=== PATIENT | male | born 1985 | race Caucasian/White ===

== ENCOUNTER 2020-06-24 06:31 | Outpatient (REF) | payer OTHER, SELFPAY ==
[2020-06-24 12:11] LABS: Free T4 (Free Thyroxine) 0.89 ng/dL (0.71-1.85); Thyroid Stimulating Hormone 3.75 uIU/mL (0.32-4.0)
== END 2020-06-24 06:32 | disposition home or self-care (01) ==
LOC: HO.HMGCLDS 06:31
PROVIDERS: PCP Internal Medicine; Visit Provider Internal Medicine
DX: E03.9 Hypothyroidism, unspecified (principal)
CPT/HCPCS: 84439; 84443

== ENCOUNTER 2020-08-04 09:36 | Outpatient (REF) | payer OTHER, SELFPAY ==
[2020-08-04 11:51] LABS: Cholesterol 329 mg/dL; HDL Cholesterol 30 mg/dL; Triglycerides 918 mg/dL
[2020-08-04 12:06] LABS: Free T4 (Free Thyroxine) 1.23 ng/dL (0.71-1.85); Thyroid Stimulating Hormone 0.89 uIU/mL (0.32-4.0)
[2020-08-07 18:58] LABS: LDL Cholesterol Direct 71 mg/dL (<100)
== END 2020-08-04 09:37 | disposition home or self-care (01) ==
LOC: HO.HMGCLDS 09:36
PROVIDERS: PCP Internal Medicine; Visit Provider Internal Medicine
DX: E03.9 Hypothyroidism, unspecified (principal)
CPT/HCPCS: 36415; 80061; 83721; 84439; 84443

== ENCOUNTER 2020-11-05 07:25 | Outpatient (REF) | payer OTHER, SELFPAY ==
[2020-11-05 12:12] LABS: Alanine Aminotransferase 27 U/L (0-40); Albumin Level 4.4 g/dL (3.5-5.0); Alkaline Phosphatase 51 U/L (39-117); Anion Gap 12 (12-20); Aspartate Amino Transferase 18 U/L (5-37); Bilirubin Direct 0.2 mg/dL (0.0-0.5); Bilirubin Total 0.7 mg/dL (0.0-1.0); Blood Urea Nitrogen 16 mg/dL (9-16); Calcium 9.8 mg/dL (8.4-10.2); Carbon Dioxide 31 mmol/L (22-29); Chloride 102 mmol/L (96-108); Cholesterol 218 mg/dL; Estimated Glomerular Filt Rate > 60; Free T4 (Free Thyroxine) 1.25 ng/dL (0.71-1.85); Glucose Fasting 91 mg/dL (60-99); HDL Cholesterol 29 mg/dL; LDL Cholesterol Calculated 115 mg/dl; Potassium 4.2 mmol/L (3.3-5.1); Sodium 141 mmol/L (135-145); Thyroid Stimulating Hormone 0.17 uIU/mL (0.32-4.0); Total Protein 7.2 g/dL (6.5-8.0); Triglycerides 374 mg/dL
[2020-11-06 04:31] LABS: LDL Cholesterol Direct 103 mg/dL (<100)
[2020-11-06 06:07] LABS: Thyroid Peroxidase Antibodies <1 IU/mL (<9)
== END 2020-11-05 07:26 | disposition home or self-care (01) ==
LOC: HO.HMGCLDS 07:25
PROVIDERS: PCP Internal Medicine; Visit Provider Internal Medicine
DX: E78.1 Pure hyperglyceridemia (principal); E03.9 Hypothyroidism, unspecified
CPT/HCPCS: 36415; 80053; 80061; 80076; 82248; 83721; 84439; 84443; 86376

== ENCOUNTER 2021-06-03 08:15 | Outpatient (REF) | payer OTHER, SELFPAY ==
[2021-06-03 12:32] LABS: Alanine Aminotransferase 22 U/L (0-40); Aspartate Amino Transferase 17 U/L (5-37); Cholesterol 243 mg/dL; HDL Cholesterol 32 mg/dL; LDL Cholesterol Calculated 142 mg/dl; Triglycerides 346 mg/dL
[2021-06-03 12:57] LABS: Free T4 (Free Thyroxine) 1.28 ng/dL (0.71-1.85); Thyroid Stimulating Hormone 0.95 uIU/mL (0.32-4.0)
== END 2021-06-03 08:16 | disposition home or self-care (01) ==
LOC: HO.HMGCLDS 08:15
PROVIDERS: PCP Internal Medicine; Visit Provider Internal Medicine
DX: Z00.01 Encounter for general adult medical examination with abnormal findings (principal); E03.9 Hypothyroidism, unspecified; E78.1 Pure hyperglyceridemia
CPT/HCPCS: 36415; 80061; 84439; 84443; 84450; 84460

== ENCOUNTER 2022-05-31 06:31 | Outpatient (REF) | payer BC, SELFPAY ==
[2022-05-31 12:17] LABS: Alanine Aminotransferase 45 U/L (0-40); Aspartate Amino Transferase 35 U/L (5-37); Cholesterol 217 mg/dL; HDL Cholesterol 30 mg/dL; LDL Cholesterol Calculated 110 mg/dl; Triglycerides 389 mg/dL
== END 2022-05-31 06:32 | disposition home or self-care (01) ==
LOC: HO.HMGCLDS 06:31
PROVIDERS: PCP Internal Medicine; Visit Provider Internal Medicine
DX: E03.9 Hypothyroidism, unspecified (principal); E78.1 Pure hyperglyceridemia
CPT/HCPCS: 36415; 80061; 84439; 84443; 84450; 84460

== ENCOUNTER → 2022-07-20 13:58 | Outpatient (REF) | payer BC, SELFPAY ==
--- NOTE | 2022-07-20 14:07 | CA_ITS ---
Transthoracic Echocardiogram Patient (Last, First, Middle): John Smith James Gender: Male Date of : 1985 Age: 36 Procedure Date: 07/20/2022 Procedure Type: Transthoracic Echocardiogram Location: OP Height: 177.8 cm Weight: 77.11 kg BSA: 1.95 m2 Heart Rate: bpm BP: 110 / 78 mmHg Surgical Coordinator: TO Referring MD: Tania Pascual MD Symptoms: R00.2 - Palpitations Study Quality: Fair/Contrast ECG Rhythm: Sinus Conclusions: - The left ventricular systolic function is normal. The visually estimated ejection fraction is between 55-60%. - No obvious valvular pathology seen on this study. Findings Procedure Information Contrast agent, definity, is being given per protocol without apparent complications. Left Ventricle Normal left ventricular cavity size. There is normal left ventricular wall thickness. The left ventricular systolic function is normal. The visually estimated ejection fraction is between 55-60%. There is no evidence of regional wall motion abnormalities. Diastolic function is normal for age. Right Ventricle Normal right ventricular cavity size and systolic function. Atria Both atria are normal in size. Aortic Valve There is a normal trileaflet aortic valve. There is no aortic valve stenosis. There is no aortic valve regurgitation. Mitral Valve The mitral valve appears normal. There is trace mitral valve regurgitation. There is no mitral valve stenosis. Pulmonic Valve The pulmonic valve is likely normal. Tricuspid Valve Normal tricuspid valve structure. There is trace tricuspid valve regurgitation. There is no evidence of pulmonary hypertension. Great Vessels The aortic annulus, sinuses of valsalva, and asc aorta are normal in size. Venous The inferior vena cava is normal in size and collapses greater than 50% with inspiration. Pericardium/Pleural There is no evidence of pericardial effusion. Prior Study Comparison No prior study available for comparison. Recommendations, Care & Conclusions No obvious valvular pathology seen on this study. Measurements 2D Linear Measurements IVSd: 0.80 0.6-0.9/0.6-1.0 cm LVIDd: 4.40 3.9-5.3/4.2-5.9 cm LVIDd Index: 2.26 2.4-3.2/2.2-3.1 cm/m2 LVIDs: 3.10 2.0-3.6 cm LVPWd: 0.85 0.7-1.1 cm LA Diam: 2.30 2.7-3.8/3.0-4.0 cm LAIDs Index: 1.18 1.5-2.3 cm/m2 LV Mass: 141.14 67-162/88-224 g LV Mass Index: 72.38 43-95/49-115 g/m2 LVOT Diam: 2.10 3.0+(-)1.3 cm 2D Systolic Function EF 4C: 60.70 >55% EF 2C: 63.90 >55% EF BiP: 61.90 >55% Mitral Valve E'Lateral: 7.94 E'Medial: 6.96 Aortic Valve AoV Pk Leno: 1.29 AoV Mn Leno: 0.92 AoV VTI: 0.24 AoV Pk Grad: 7.00 Aov Mn Grad: 4.00 KIARA Cont.VTI: 2.11 LVOT LVOT Pk Leno: 0.78 LVOT Mn Leno: 0.56 LVOT VTI: 0.15 LVOT Pk Grad: 2.00 LVOT Mn Grad: 1.00 LVOT Diam: 2.10 LVOT Area: 3.46 Diastolic Function E'Medial: 6.96 E' Laterial: 7.94 Right Ventricle TAPSE (mm): 19.00 TVS' Leno: 10.30 Tricuspid Valve TR Pk Leno: 1.91 TR Pk Grad: 15.00 RA Press: 3.00 RVSP: 18.00 Great Vessels Aorta Sinus of Valsalva: 3.05 2.0-3.5 cm Ao Asc: 2.80 2.1-3.4 cm Updated in Other Vendor System with Status of Final Rashard Zhao MD electronically signed on 07/22/2022 1:25:54 PM with status of Final
== END ==
LOC: HO.CARD 13:58
PROVIDERS: Visit Provider Internal Medicine
DX: R07.89 Other chest pain (principal); R00.2 Palpitations; I45.10 Unspecified right bundle-branch block; E03.9 Hypothyroidism, unspecified; E78.1 Pure hyperglyceridemia
CPT/HCPCS: 93242; 93306; Q9957

== ENCOUNTER → 2022-07-29 14:41 | Outpatient (REF) | payer BC, SELFPAY ==
--- NOTE | 2022-07-29 15:00 | HM_ITS ---
* Total monitoring time 5 days, 22 hours. * Underlying rhythm is sinus. Average ventricular rate 73/Min. Range 47 to 166/Min. * Rare PACs and PVCs with minimal burden. * No sustained arrhythmias. * No pauses or AV blocks. * Palpitations correlate with PVCs. MTDD
== END ==
LOC: HO.CARD 14:41
PROVIDERS: Visit Provider Internal Medicine
DX: R07.89 Other chest pain (principal); I45.10 Unspecified right bundle-branch block; R00.2 Palpitations
CPT/HCPCS: 93242

== ENCOUNTER → 2022-09-20 14:13 | Outpatient (BNVA) | payer BC, SELFPAY | PROVIDERS: PCP Internal Medicine; Referring Provider Internal Medicine; Visit Provider Internal Medicine | DX: R07.2 Precordial pain (principal); I49.3 Ventricular premature depolarization; R00.2 Palpitations | CPT/HCPCS: 93005 ==

== ENCOUNTER 2023-03-02 09:07 | Outpatient (REF) | payer BC, SELFPAY ==
[2023-03-02 11:57] LABS: Alanine Aminotransferase 34 U/L (0-40); Aspartate Amino Transferase 20 U/L (5-37); Cholesterol 221 mg/dL; HDL Cholesterol 35 mg/dL; LDL Cholesterol Calculated 149 mg/dl; Triglycerides 188 mg/dL
[2023-03-02 12:15] LABS: Thyroid Stimulating Hormone 0.29 uIU/mL (0.32-4.0)
[2023-03-03 05:59] LABS: Thyroid Peroxidase Antibodies <1 IU/mL (<9)
== END 2023-03-02 09:08 | disposition home or self-care (01) ==
LOC: HO.HMGCLDS 09:07
PROVIDERS: PCP Internal Medicine; Visit Provider Internal Medicine
DX: E03.9 Hypothyroidism, unspecified (principal); F32.A Depression, unspecified; F41.9 Anxiety disorder, unspecified; E78.1 Pure hyperglyceridemia
CPT/HCPCS: 36415; 80061; 84439; 84443; 84450; 84460; 86376

== ENCOUNTER 2023-03-06 16:20 | Outpatient (AMB) | payer BC, SELFPAY ==
--- NOTE | 2023-03-06 16:20 | MHC.PC.OV ---
Intake Visit Reasons: f/u lipids and thyroid I phone Allergies No Known Allergies Allergy (Verified 03/06/23 16:24) Medication List - Last Reconciled 03/06/23 by Tania Pascual MD omega-3 acid ethyl esters (Lovaza) 2 caps PO BID Synthroid (levothyroxine) 150 mcg PO QWEEK NS Synthroid (levothyroxine) ONE TABLET Q.A.M. MONDAY TO MONDAY 175 mcg PO; NS Tobacco use date assessed: 03/06/23 Dental Screening Dental Screen Date: 03/06/23 Did you have a dental visit in the last 12 months?: Yes Did you have a dental problem in the last 6 months where you did not have access to dental care?: No Was dental information given to patient?: No HPI f/u lipids and thyroid I phone HPI Details Tele health visit made with 37-year-old male with mixed dyslipidemia and hypothyroidism, currently on Hortense 3 fatty acid supplements and Synthroid, here today for a follow-up. He had recent fasting labs done which showed triglycerides within normal limits but LDL cholesterol higher than last check at 149 mg/dL patient states that he has not been very strict with his diet these past few months. His latest labs also showed mildly suppressed TSH with normal free T4 and negative thyroid peroxidase antibodies . [facility] Medical History (Updated 03/06/23 @ 16:42 by Tania Pascual MD) Acquired hypothyroidism Familial hypertriglyceridemia Refused influenza vaccine Surgical History No pertinent past surgical history Family History Father No problems noted. Mother Graves' disease Substance use disorder Brother No problems noted. Daughter No problems noted. Daughter No problems noted. Sister Substance use disorder Social History Housing: House Alcohol intake: former Year quit: 2021 Patient Tobacco Use Status: Never used Tobacco e-Cigarette/Vaping Use: Never Used service: No Current occupational status: employed Cognitive needs: No Hearing needs: No Vision needs: No Questionnaire Thrive Questionnaire Date Thrive assessed: 07/29/22 AUDIT C Alcohol Use Questionnaire (AUDIT-C) 1. How often do you have a drink containing alcohol?: Never 3. How often do you have six or more drinks on one occasion?: Never Total Score: 0 Score Reviewed/Action Taken: Yes SCOTT-7 AMB Questionnaire SCOTT-7 Date SCOTT - 7 assessed: 07/29/22 Source: Developed by Drs. Johan Noe, Rachel Owens, Dinesh Rahman and colleagues, with an educational gen from [employer]. Review of Systems Const Denies daytime sleepiness, Denies fatigue, Denies fever(s), Denies frequent falls, Denies night sweats and Denies weakness Eyes Denies change in vision ENT Denies dizziness and Denies hearing loss Card Denies chest pain, Denies chest pain with activity, Denies syncope, Denies rapid heart rate, Denies leg edema, Denies lightheadedness, Denies palpitations, Denies dyspnea and Denies dyspnea on exertion Resp Denies cough, Denies excessive phlegm production, Denies dyspnea and Denies dyspnea on exertion GI Denies abdominal pain, Denies hematochezia, Denies change in bowel habits, Denies change in stool character, Denies heartburn, Denies nausea and Denies vomiting Musc Denies arthralgias, Denies muscle weakness, Denies numbness and Denies tingling Neuro Denies dizziness, Denies syncope, Denies frequent falls, Denies memory loss, Denies numbness, Denies tingling and Denies weakness Psych Denies depression and Denies memory loss Endo Denies fatigue and Denies palpitations Physical exam (Primary Care) Tobacco/Smoking Status: Tobacco use Status Tobacco use date assessed 07/29/22 07/29/22 12:55 Patient Tobacco Use Status Never used Tobacco 09/20/22 14:28 e-Cigarette/Vaping Use Never Used 09/20/22 14:28 Thrive Assessment: Date of Thrive Assessment Date Thrive assessed 07/29/22 07/29/22 13:04 Telehealth Telehealth Location of provider rendering services: practice address Location of patient: address on file Patient Identification confirmed using: Name, : Yes Telehealth method: video Patient verbally consented to treatment: Yes Patient verbally consented to billing insurance company: Yes Patient informed of any privacy concerns related to visit: Yes Minutes spent on Phone/Video with Pt.: 15 Results Reviewed Results Reviewed: NTERED: 03/02/23-[address] [facility] [address]: ORDERED: AST, ALT, Lipid Panel, Free T4, TSH Test Result Flag Reference Site AST (GOT) 20 5-37 U/L ALT (GPT) 34 0-40 U/L Triglyceride 188 mg/dL Desirable Triglyceride: less than 150 mg/dL Borderline High Triglyceride 150-199 mg/dL High Triglyceride: 200-499 mg/dL Very High Triglyceride: greater than or equal to 5OO mg/dL Chol 221 mg/dL Desirable Cholesterol: less than 200 mg/dL Borderline High Cholesterol: 200-239 mg/dL High Cholesterol: greater than 239 mg/dL LDL Calculated 149 mg/dl Desirable LDL: less than 100 mg/dL Near Optimal/Above Optimal LDL: 110-129 mg/dL Borderline High LDL: 130-159 mg/dL High LDL: 160-189 mg/dL Very High LDL: greater than or equal to 190 mg/dL HDL 35 mg/dL Desirable HDL: greater than 40 mg/dL Note: This HDL assay may give artificially low results in patients with liver disease. Free T4 1.20 0.71-1.85 ng/dL TSH 3rd Gen. 0.29 L 0.32-4.0 uIU/mL Laboratory Tests 03/02/23 09:11 Thyroid Peroxidase Ab <1 Assessment and Plan Assessment & Plan (1) Familial hypertriglyceridemia: Code(s): E78.1 - Pure hyperglyceridemia Plan: Reviewed recent fasting lipid profile with patient with triglyceride levels within normal limits but LDL cholesterol slightly elevated as compared to last check. Continue taking Hortense 3 fatty acid supplements, in addition to adherence to low-cholesterol diet and regular exercise, at least 30 minutes 3 to 4 times a week. Advised patient to make healthy food choices, eat more fruits, vegetables, whole grains, wild caught fish and low-fat dairy. Limit amount of meat and fried or fatty food products, as well as processed foods and fast foods. Follow-up scheduled with repeat fasting lipid panel in 5 months. (2) Acquired hypothyroidism: Code(s): E03.9 - Hypothyroidism, unspecified Plan: Stable and controlled on current dose of Synthroid will repeat another TSH in, free T4 in July 2023 (3) Refused influenza vaccine: Code(s): Z28.21 - Immunization not carried out because of patient refusal Orders: Orders Alanine Aminotransferase 07/17/23 E03.9 - Hypothyroidism, unspecified, E78.1 - Pure hyperglyceridemia, Z13.1 - Encounter for screening for diabetes mellitus Aspartate Amino Transferase 07/17/23 E03.9 - Hypothyroidism, unspecified, E78.1 - Pure hyperglyceridemia, Z13.1 - Encounter for screening for diabetes mellitus Glucose Fasting 07/17/23 E03.9 - Hypothyroidism, unspecified, E78.1 - Pure hyperglyceridemia, Z13.1 - Encounter for screening for diabetes mellitus Lipid Panel 07/17/23 E03.9 - Hypothyroidism, unspecified, E78.1 - Pure hyperglyceridemia, Z13.1 - Encounter for screening for diabetes mellitus Free T4 (Free Thyroxine) 07/17/23 E03.9 - Hypothyroidism, unspecified, E78.1 - Pure hyperglyceridemia Thyroid Stimulating Hormone 07/17/23 E03.9 - Hypothyroidism, unspecified, E78.1 - Pure hyperglyceridemia Coding Level of Care Code Tele Est Pt Level 3 (69802) Diagnoses Familial hypertriglyceridemia E78.1 Acquired hypothyroidism E03.9 Refused influenza vaccine Z28.21
== END 2023-03-06 17:05 | disposition home or self-care (01) ==
LOC: HO.HMGC 16:20
PROVIDERS: PCP Internal Medicine; Visit Provider Internal Medicine
DX: E78.1 Pure hyperglyceridemia (principal); E03.9 Hypothyroidism, unspecified; Z28.21 Immunization not carried out because of patient refusal
CPT/HCPCS: 99213

== ENCOUNTER 2023-10-13 09:34 | Outpatient (AMB) | payer BC, SELFPAY ==
--- NOTE | 2023-10-13 09:37 | A.OFFPC_ITS ---
Vital Signs 10/13/23 09:38 Height 5 ft 10 in Weight 169 lb BMI 24.2 BP 110/70 Blood Pressure Location Rt brachial Position Sitting Pulse 94 Pulse Source Pulse Oximeter Pulse Oximetry (%) 98 Oxygen Delivery Method Room Air Intake Visit Reasons: [facility] ER f/u Intake Note: Pt is here today for his ER f/u Allergies No Known Allergies Allergy (Verified 10/13/23 09:53) Medication List - Last Reconciled 10/13/23 by Tania Pascual MD omega-3 acid ethyl esters (Lovaza) 2 caps PO BID polyethylene glycol 3350 (Miralax) 17 grams PO DAILY Synthroid (levothyroxine) 150 mcg PO QWEEK NS Synthroid (levothyroxine) ONE TABLET Q.A.M. MONDAY TO MONDAY 175 mcg PO; NS Tobacco use date assessed: 10/13/23 Dental Screening Dental Screen Date: 10/13/23 Did you have a dental visit in the last 12 months?: No Was dental information given to patient?: Patient has dentist HPI [facility] ER f/u HPI Details 37-year-old male here today for follow-u p after recent ER visit at [facility] complaining of severe abdominal pain accompanied by constipation patient states that his best been present now for the last 3 months and getting worse. He has been passing liquid stools and occasionally stringy stools, no formed stools for several months now. Denies any accompanying blood in his stool. Has been getting heartburn symptoms, can occur anytime of the day, sometimes would wake up with severe epigastric pain. Has just been taking Rolaids, which she states has not really been helping. He is also heavy tea dri nker, does not he states that he has been eating a lot of fiber eating egg whites and is equal bread and lot of vegetables in his diet, and drinks tea most of the time. CT of abdomen pelvis with contrast done at [facility] showed no focal lesions in liver, normal gallbladder, no biliary ductal dilatation, no splenomegaly your no mass or ductal dilatation in pancreas, no nodules in adrenal glands, kidneys did not show any evidence of stone, no solid mass or hydronephrosis,, normal appendix, no evidence of bowel obstruction, no pneumo peritoneum or fluid, mildly prominent central mesenteric lymph nodes with haziness in the adjacent mesentery with additional less well-defined central mesenteric soft tissue focus measuring up to 2.5 x 2 by 1 cm which is in close proximity to the transverse colon but does not definitely arise from the colon. Differential diagnosis is chronic mesenteric panniculitis. Labs done at [facility] ER showed CBC within normal limits except for low white blood cell count at 3.18, electrolytes, renal function TSH, lipase liver enzymes were unremarkable except for mildly elevated ALT at 42. Urinalysis came back negative for infection. He was offered a Fleet enema to be done at the ER but patient declined, advised to do a bowel regimen with MiraLax b.i.d. for 5 days followed by once daily as needed for constipation, encouraged to continue with a high-fiber diet, continue exercise stay well-hydrated and advised to have a repeat CT with contrast in 3 months to exclude any lymphoproliferative disorder developing. At present patient is still complaining of constant abdominal pain accompanied by bloating, more in the epigastric area and right lower quadrant, accompanied by passage of liquid stools and occasionally stringy stool, heartburn symptoms, with nausea and occasional vomiting. [facility], [facility] Medical History Irregular bowel habits Mesenteric panniculitis Diffuse abdominal pain Refused influenza vaccine Familial hypertriglyceridemia Acquired hypothyroidism Surgical History No pertinent past surgical history Family History Father No problems noted. Mother Graves' disease Substance use disorder Brother No problems noted. Daughter No problems noted. Daughter No problems noted. Sister Substance use disorder Social History Housing: House Alcohol intake: former Year quit: 2021 Patient Tobacco Use Status: Never used Tobacco e-Cigarette/Vaping Use: Never Used service: No Current occupational status: employed Cognitive needs: No Hearing needs: No Vision needs: No Questionnaire Thrive Questionnaire Date Thrive assessed: 07/29/22 AUDIT C Alcohol Use Questionnaire (AUDIT-C) 1. How often do you have a drink containing alcohol?: Never Total Score: 0 SCOTT-7 AMB Questionnaire SCOTT-7 Date SCOTT - 7 assessed: 07/29/22 Source: Developed by Drs. Johan Noe, Rachel Owens, Dinesh Rahman and colleagues, with an educational gen from [employer]. Review of Systems Const Denies fatigue, Denies fever(s) and Denies weakness Eyes Denies change in vision ENT Denies dizziness Card Denies chest pain, Denies rapid heart rate, Denies lightheadedness, Denies palpitations and Denies dyspnea Resp Denies cough, Denies excessive phlegm production and Denies dyspnea GI Denies hematochezia Musc Denies arthralgias, Denies muscle weakness, Denies numbness and Denies tingling Neuro Denies dizziness, Denies numbness, Denies tingling and Denies weakness Endo Denies fatigue and Denies palpitations Physical exam (Primary Care) Vital Signs: Last Vital Signs Pulse 94 10/13/23 09:38 BP 110/70 10/13/23 09:38 Pulse Ox 98 10/13/23 09:38 Oxygen Delivery Method Room Air 10/13/23 09:38 BMI result Body Mass Index 24.2 Tobacco/Smoking Status: Tobacco use Status Tobacco use date assessed 10/13/23 10/13/23 09:43 Patient Tobacco Use Status Never used Tobacco 10/13/23 09:43 e-Cigarette/Vaping Use Never Used 10/13/23 09:43 Thrive Assessment: Date of Thrive Assessment Date Thrive assessed 07/29/22 10/13/23 09:43 Const Orientation/consciousness: patient oriented x3 HENMT Mouth: Normal oral and palatal mucosa present and moist mucous membranes Eyes General: appearance normal, both eyes and all related structures Neck Other: Supple, with no lymphadenopathy palpated, thyroid gland nonpalpable and nontender Resp Auscultation: clear to auscultation bilaterally Cardio Other: S1 and S2 present, regular rate and rhythm GI Inspection: Yes normal to inspection Palpation (GI): Soft to palpation, Tenderness to palpation present (GI) in the epigastrum, in the LLQ and in the RUQ; Liz's sign negative, with no rebound tenderness and Rovsing's sign negative, no guarding, not rigid and no masses Auscultation: Hyperactive bowel sounds present General: Yes no CVA tenderness Male General Exam: No hernia Back/Spine/Pelvis Back: no CVA tenderness and No back tenderness Skin General skin exam: no rashes or lesions noted Neuro General: patient oriented x3, gait normal, tone normal, moves all extremities, Normal light touch and pain sensation, no focal motor deficits and CN's II-XI intact bilaterally Cognition (Neuro): normal cognition Gait exam (Neuro): Normal gait present Extrem General: Yes full ROM, Yes no joint enlargement, Yes no clubbing, cyanosis or edema, Yes no calf tenderness and Yes normal gait Psych Appearance: grossly normal and well kempt Mental Status: mental status grossly normal Speech and movement: Normal speech and movement present Affect: Anxious affect present Assessment and Plan Assessment & Plan (1) Diffuse abdominal pain: Code(s): R10.84 - Generalized abdominal pain Plan: Treated empirically with pantoprazole mg per capsule to take once a day an hour before eating, either a.m. or p.m. advised to cut back on a lot of acidic foods and anything let us tomato based no fried foods, do a bland diet, stay well- hydrated, avoid caffeine which includes his Tea drinking (2) Epigastric abdominal pain: Code(s): R10.13 - Epigastric pain Plan: Treated empirically with pantoprazole mg per capsule to take once a day an hour before eating, either a.m. or p.m. advised to cut back on a lot of acidic foods and anything let us tomato based no fried foods, do a bland diet, stay well-hy drated, avoid caffeine which includes his Tea drinking. 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 Brandon, per patient request, ordered (4) Irregular bowel habits: Code(s): R19.8 - Other specified symptoms and signs involving the digestive system and abdomen Plan: Referred to GI, referred to Dr. 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
[2023-10-13 09:38] VITALS: BP 110/70; PULSE 94; O2SAT 98; BMI 24.2
== END 2023-10-13 10:28 | disposition home or self-care (01) ==
PROVIDERS: PCP Internal Medicine; Visit Provider Internal Medicine
DX: R10.84 Generalized abdominal pain (principal); R10.13 Epigastric pain; K65.4 Sclerosing mesenteritis; R19.8 Other specified symptoms and signs involving the digestive system and abdomen
CPT/HCPCS: 99214

== ENCOUNTER 2023-10-16 07:23 | Outpatient (REF) | payer BC, SELFPAY ==
--- NOTE | ~2023-10-16 | FL_ITS ---
EXAMINATION: XR FLUOROSCOPY UPPER GI WITH AIR CLINICAL INFORMATION: Epigastric pain COMPARISON: None TECHNIQUE: Fluoroscopic air contrast upper GI examination was performed utilizing standard techniques with thin and thick barium and effervescent granules. Numerous spot images were obtained. FINDINGS: Dual and single contrast images of the esophagus demonstrate normal caliber, contour, and mucosal pattern. No evidence of stricture, mass, or ulcerations identified. Esophageal peristalsis was normal. No evidence of hiatus hernia identified. Gastroesophageal reflux is seen up to the thoracic inlet. Dual contrast and single contrast images of the stomach demonstrated a normal contour. Gastric rugal folds appear mildly thickened. There are multiple tiny foci of contrast pooling in the body and fundus of the stomach that might represent small superficial aphthous ulcers. No masses are seen. Contrast freely passed into the gastric antrum and duodenal bulb without delay. Single and air-contrast images of the duodenal bulb demonstrate no abnormality. The duodenal sweep has a normal appearance, course, and mucosal fold appearance. No malrotation. The imaged proximal jejunum has a normal fold pattern and caliber. FLUOROSCOPY TIME: 2 minutes 57 seconds Number of Spot Images: 13 Number of Cine: 9 DOSE AREA PRODUCT: 2117 uGy-m2 (microgray-meter squared) FL/FL upper GI series IMPRESSION: 1. Significant gastroesophageal reflux 2. Mildly thickened gastric rugal folds. In addition, there are multiple tiny foci of contrast pooling in the body and fundus the stomach. These findings are suggestive of erosive gastritis. Recommend correlation with EGD. This procedure was performed by Tanmay Garcia PA-C, and supervised by Dr. Phipps
== END 2023-10-16 07:24 | disposition home or self-care (01) ==
LOC: HO.XRAY 07:23
PROVIDERS: PCP Internal Medicine; Visit Provider Internal Medicine
DX: R10.13 Epigastric pain (principal); R10.84 Generalized abdominal pain
CPT/HCPCS: 74240

== ENCOUNTER → 2023-10-16 07:24 | Outpatient (BNV) | payer BC, SELFPAY | PROVIDERS: PCP Internal Medicine; Visit Provider Physician Assistant Surgical | DX: R10.13 Epigastric pain (principal) | CPT/HCPCS: 74246 ==

== ENCOUNTER 2023-11-01 13:44 | Outpatient (REF) | payer BC, SELFPAY ==
[2023-11-01 15:31] LABS: Hematocrit 45.7 % (42.0-52.0); Hemoglobin 15.6 g/dl (14.0-18.0); Mean Corpuscular HGB Conc 34.1 g/dl (31.0-36.0); Mean Corpuscular Hemoglobin 31.8 pg (27.0-33.0); Mean Corpuscular Volume 93.1 fL (80.0-98.0); Mean Platelet Volume 10.6 fL (9.4-12.4); Platelet Count 194 X10*3/uL (160-400); Red Blood Count 4.91 X10*6/uL (4.60-5.80); White Blood Count 3.5 X10*3/uL (4.8-10.8)
[2023-11-01 16:28] LABS: Alanine Aminotransferase 22 U/L (0-40); Albumin Level 4.3 g/dL (3.5-5.0); Alkaline Phosphatase 60 U/L (39-117); Anion Gap 11 (12-20); Aspartate Amino Transferase 16 U/L (5-37); Bilirubin Total 0.5 mg/dL (0.0-1.0); Blood Urea Nitrogen 10 mg/dL (9-16); Calcium 9.7 mg/dL (8.4-10.2); Carbon Dioxide 31 mmol/L (22-29); Chloride 103 mmol/L (96-108); Estimated Glomerular Filt Rate > 60; Glucose Random 99 mg/dL (60-115); Sodium 141 mmol/L (135-145); Total Protein 7.5 g/dL (6.5-8.0)
[2023-11-02 14:34] LABS: Immunoglobulin A 357 mg/dL (47-310)
[2023-11-02 20:48] LABS: Transglutaminase IgA <1.0 U/mL
== END 2023-11-01 13:45 | disposition home or self-care (01) ==
LOC: HO.LAB 13:44
PROVIDERS: PCP Internal Medicine; Visit Provider Internal Medicine
DX: K29.60 Other gastritis without bleeding (principal); K21.00 Gastro-esophageal reflux disease with esophagitis, without bleeding; R19.8 Other specified symptoms and signs involving the digestive system and abdomen
CPT/HCPCS: 36415; 80053; 82306; 82784; 85027; 86364

== ENCOUNTER 2023-11-01 13:44 | Outpatient (AMB) | payer BC, SELFPAY ==
--- NOTE | 2023-11-01 13:45 | MHC.OFFVIS ---
Intake Vital Signs 11/01/23 13:46 Height 5 ft 10 in Weight 167 lb 8.821 oz BMI 24.0 BP 116/69 Blood Pressure Location Lt brachial Position Sitting Pulse 93 Intake Visit Reasons: Nausea/vomiting /abdominal pain Intake Note: John presents in the office as a new patient for pains in the abdomen, nausea and vomiting. CC: He states that he went to the ED a few weeks back because he had intense pains in his abdomen. He was having constipation but the same time he had diarrhea. He would be in a ball for 2 hours. HE was seen at [facility]. Seen PCP for a follow up and was suggested Upper GI where Gastritis was seen. 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 Pt reports chronic lower abd pain for years which he just associates with his BMs. Last month had epigastric discomfort assoc with diarrhea. Went to [facility] where he had a CT scan that showed a 2.5 cm soft tissue focus read as mesenteric panniculitis. He then had another episode of severe pain that lasted 4 hours on Monday without any N,V, change in bowel habits. The pain abated on its own. Had upper GI series 10/2023 that shows GERD and gastritis. [facility] Medical History Gastroesophageal reflux disease with esophagitis Erosive gastritis Irregular bowel habits Mesenteric panniculitis Diffuse abdominal pain Refused influenza vaccine Familial hypertriglyceridemia Acquired hypothyroidism Surgical History No pertinent past surgical history Family History Father No problems noted. Mother Graves' disease Substance use disorder Brother No problems noted. Daughter No problems noted. Daughter No problems noted. Sister Substance use disorder Social History Housing: House Alcohol intake: former Year quit: 2021 Patient Tobacco Use Status: Never used Tobacco e-Cigarette/Vaping Use: Never Used service: No Current occupational status: employed Cognitive needs: No Hearing needs: No Vision needs: No Review of Systems Const All systems reviewed & are unremarkable except as noted in HPI and below Physical Exam Vital Signs: Last Vital Signs Pulse 93 11/01/23 13:46 BP 116/69 11/01/23 13:46 BMI result Body Mass Index 24.0 NAD Nonicteric Abd soft, midl tenderness in RLQ, nondistended Assessment & Plan Assessment & Plan (1) Gastroesophageal reflux disease with esophagitis: Code(s): K21.00 - Gastro-esophageal reflux disease with esophagitis, without bleeding (2) Erosive gastritis: Code(s): K29.60 - Other gastritis without bleeding (3) Irregular bowel habits: Code(s): R19.8 - Other specified symptoms and signs involving the digestive system and abdomen (4) 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 Change in bowel habits could be related to SM, but will r/o celiac, IBD etc. Plan: - will check CRP, Igg4 and repeat CT ABd/pel. - celiac panel, fecal calpro - decision re further management including ? pred will depend on results of above as well as clinical sx Follow up 6 weeks Orders: Orders Immunoglobulin A Today K21.00 - Gastro-esophageal reflux disease with esophagitis, without bleeding, K29.60 - Other gastritis without bleeding, R19.8 - Other specified symptoms and signs involving the digestive system and abdomen Vitamin D 25-OH Total Today K21.00 - Gastro-esophageal reflux disease with esophagitis, without bleeding, K29.60 - Other gastritis without bleeding, R19.8 - Other specified symptoms and signs involving the digestive system and abdomen Complete Blood Count no Diff Today K21.00 - Gastro-esophageal reflux disease with esophagitis, without bleeding, K29.60 - Other gastritis without bleeding, R19.8 - Other specified symptoms and signs involving the digestive system and abdomen Comprehensive Met. Panel Today K21.00 - Gastro-esophageal reflux disease with esophagitis, without bleeding, K29.60 - Other gastritis without bleeding, R19.8 - Other specified symptoms and signs involving the digestive system and abdomen Transglutaminase IgA Today K21.00 - Gastro-esophageal reflux disease with esophagitis, without bleeding, K29.60 - Other gastritis without bleeding, R19.8 - Other specified symptoms and signs involving the digestive system and abdomen Calprotectin, Fecal Today K21.00 - Gastro-esophageal reflux disease with esophagitis, without bleeding, K29.60 - Other gastritis without bleeding, R19.8 - Other specified symptoms and signs involving the digestive system and abdomen CT abdomen pelvis w IV con Today 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
[2023-11-01 13:46] VITALS: BP 116/69; PULSE 93; BMI 24.0
== END 2023-11-01 14:27 | disposition home or self-care (01) ==
PROVIDERS: PCP Internal Medicine; Visit Provider Internal Medicine
DX: K21.00 Gastro-esophageal reflux disease with esophagitis, without bleeding (principal); K29.60 Other gastritis without bleeding; R19.8 Other specified symptoms and signs involving the digestive system and abdomen; K65.4 Sclerosing mesenteritis; R10.84 Generalized abdominal pain
CPT/HCPCS: 99204

== ENCOUNTER 2023-11-02 16:36 | Outpatient (REF) | payer BC, SELFPAY ==
[2023-11-08 00:52] LABS: Calprotectin, Fecal 30 mcg/g
== END 2023-11-02 16:37 | disposition home or self-care (01) ==
LOC: HO.LNP 16:36
PROVIDERS: Visit Provider Internal Medicine
DX: K29.60 Other gastritis without bleeding (principal); K21.00 Gastro-esophageal reflux disease with esophagitis, without bleeding; R19.8 Other specified symptoms and signs involving the digestive system and abdomen
CPT/HCPCS: 83993

== ENCOUNTER 2023-12-14 08:24 | Outpatient (REF) | payer BC, SELFPAY | END 2023-12-14 08:25 | disposition home or self-care (01) | LOC: HO.XRAY 08:24 | PROVIDERS: PCP Internal Medicine; Visit Provider Internal Medicine | DX: Z13.89 Encounter for screening for other disorder (principal) ==

== ENCOUNTER 2023-12-27 08:07 | Outpatient (REF) | payer BC, SELFPAY ==
--- NOTE | ~2023-12-27 | CT_ITS ---
EXAMINATION: CT ABDOMEN AND PELVIS WITH CONTRAST CLINICAL INFORMATION: Sclerosing mesenteritis. COMPARISON: Upper GI 10/16/2023. TECHNIQUE: Multidetector volumetric images were obtained from the superior aspect of the liver through the pubic symphysis following administration 85 mL of Omnipaque 350 intravenous contrast. Sagittal and coronal reformatted images were obtained on the technologist's workstation. Oral contrast: No This CT examination was performed using dose optimization techniques as appropriate, variously including the following: *Automated exposure control *Adjustment of mA and/or kV according to patient size (this includes techniques or standardized protocols for targeted exams where dose is matched to indication/reason for exam; i.e. extremities or head) *Use of iterative reconstruction technique DLP: 380 mGy-cm FINDINGS: LUNG BASES: The visualized lung bases are unremarkable. LIVER, GALLBLADDER, AND BILIARY TREE: The liver is normal in size, shape, and attenuation. No focal hepatic lesion or biliary ductal dilatation is present. The gallbladder is unremarkable with no evidence of radiopaque gallstones, gallbladder wall thickening, or obvious pericholecystic inflammatory changes. PANCREAS: Unremarkable. SPLEEN: Unremarkable. ADRENAL GLANDS: Unremarkable. KIDNEYS AND URETERS: The kidneys are normal in size, shape, and attenuation. No hydronephrosis, hydroureter, or calculi seen. No perinephric stranding. BLADDER: Unremarkable. GASTROINTESTINAL TRACT: The small and large bowel are unremarkable. The appendix is unremarkable. ABDOMINAL WALL: No significant hernia is appreciated. RETROPERITONEUM, MESENTERY AND LYMPH NODES: There are radha changes in the small bowel mesentery with multiple small lymph nodes with the largest measuring about 0.7 cm in short axis dimension. There was one larger central mass present measuring 1.9 x 1.6 x 0.8 cm (3:30 and gauthier images). No calcification is seen within this larger area and no spiculation is identified. This likely represents a single larger lymph node but entities such as carcinoid or possibly low-grade lymphoma can also be considered. If prior imaging is available for comparison, this would be helpful. VASCULAR: Unremarkable. PELVIC VISCERA: Unremarkable. OSSEOUS STRUCTURES: Unremarkable. CT/CT abdomen pelvis w IV con IMPRESSION: Radha changes in the small bowel mesentery with multiple small lymph nodes. There is one larger central mass present measuring 1.9 x 1.6 x 0.8 cm. This likely represents a single larger lymph node but entities such as carcinoid or possibly low-grade lymphoma can also be considered. If prior imaging is available for comparison, this would be helpful. If prior imaging not available, consider PET/CT or follow-up CT in 6-12 months. Fleischner guidelines were followed.
[2023-12-27] MEDS: iohexoL 350 MG/ML 100 ML INFUS..BTL 85 ML IV (08:51)
== END 2023-12-27 08:08 | disposition home or self-care (01) ==
LOC: HO.CT 08:07
PROVIDERS: PCP Internal Medicine; Visit Provider Internal Medicine
DX: K65.4 Sclerosing mesenteritis (principal)
CPT/HCPCS: 74177; Q9967

== ENCOUNTER → 2024-02-07 11:07 | Outpatient (BNV) | payer BC, SELFPAY | PROVIDERS: PCP Internal Medicine; Referring Provider Internal Medicine; Visit Provider Internal Medicine | DX: K65.4 Sclerosing mesenteritis (principal) | CPT/HCPCS: 99204 ==

== ENCOUNTER 2024-02-26 09:22 | Outpatient (REF) | payer BC, SELFPAY ==
[2024-02-26 11:53] LABS: Alanine Aminotransferase 29 U/L (0-40); Albumin Level 4.4 g/dL (3.5-5.0); Alkaline Phosphatase 62 U/L (39-117); Aspartate Amino Transferase 20 U/L (5-37); Bilirubin Direct 0.1 mg/dL (0.0-0.5); Bilirubin Total 0.7 mg/dL (0.0-1.0); C Reactive Protein < 0.10 mg/dL (< or = 0.50); Total Protein 7.4 g/dL (6.5-8.0)
[2024-02-27 13:22] LABS: Calcium, Ionized 5.2 mg/dL (4.7-5.5)
[2024-02-27 15:29] LABS: Immunoglobulin G Subclass 1 310 mg/dL (382-929); Immunoglobulin G Subclass 2 479 mg/dL (241-700); Immunoglobulin G Subclass 3 24 mg/dL (22-178); Immunoglobulin G Subclass 4 49.9 mg/dL (4-86); Immunoglobulin G Total 910 mg/dL (600-1640)
== END 2024-02-26 09:23 | disposition home or self-care (01) ==
LOC: HO.LAB 09:22
PROVIDERS: PCP Internal Medicine; Visit Provider Internal Medicine
DX: R59.1 Generalized enlarged lymph nodes (principal); K65.4 Sclerosing mesenteritis
CPT/HCPCS: 36415; 80076; 82330; 82784; 83970; 86140

== ENCOUNTER 2024-02-26 09:22 | Outpatient (AMB) | payer BC, SELFPAY ==
--- NOTE | 2024-02-26 09:23 | A.OFFVIS_ITS ---
Vital Signs 02/26/24 09:24 Height 5 ft 10 in Weight 174 lb 2.643 oz BMI 25.0 BP 126/87 Blood Pressure Location Lt brachial Position Sitting Pulse 72 Intake Visit Reasons: 6 week follow up Intake Note: John presents in the office as a follow up. CC: He states that he is having pains in the right abdomen that comes and goes. Sometimes he has constipation and he travels so that did not help. 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 Pt reports chronic lower abd pain for years which he just associates with his BMs. Last month had epigastric discomfort assoc with diarrhea. Went to [facility] where he had a CT scan that showed a 2.5 cm soft tissue focus read as mesenteric panniculitis. He then had another episode of severe pain that lasted 4 hours on Monday without any N,V, change in bowel habits. The pain abated on its own. Had upper GI series 10/2023 that shows GERD and gastritis. 02/26/24: Here for follow up. CT Scan from December reviewed, labs reviewed. Persistent borderline leukopenia. Mildly elevated serum calcium. Scan with interval DECREASE in the soft tissue density. Pt seen by Onc - ? reactive LN. Plan for repeat imaging in 3 months. Pt himself reports resolution in the abd pain that actually sent him to [facility] since start lansoprazole. Now has intermittent R sided abd discomfort daniel after eating. Bowel habits regular. No fevers, chills, night sweats or unintentionl weight loss. [facility] Medical History Gastroesophageal reflux disease with esophagitis Erosive gastritis Irregular bowel habits Mesenteric panniculitis Diffuse abdominal pain Refused influenza vaccine Familial hypertriglyceridemia Acquired hypothyroidism Surgical History (Reviewed 02/26/24 @ : by NARA Potter) No pertinent past surgical history Family History (Reviewed 02/26/24 @ 09: by NRAA Potter) Father No problems noted. Mother Graves' disease Substance use disorder Cervical cancer Brother No problems noted. Daughter No problems noted. Daughter No problems noted. Sister Substance use disorder Social History Household Members: Spouse and Children Housing: House Alcohol intake: former Year quit: 2021 e-Cigarette/Vaping Use: Never Used Current occupational status: employed Gender identity: Male Cognitive needs: No Hearing needs: No Vision needs: No Review of Systems Const All systems reviewed & are unremarkable except as noted in HPI and below Physical Exam Vital Signs: Last Vital Signs Pulse 72 02/26/24 09:24 BP 126/87 02/26/24 09:24 BMI result Body Mass Index 25.0 NAD Nonicteric Abd soft, midl tenderness in RLQ, nondistended Assessment & Plan Assessment & Plan (1) Gastroesophageal reflux disease with esophagitis: Code(s): K21.00 - Gastro-esophageal reflux disease with esophagitis, without bleeding Category: Medical (2) Erosive gastritis: Code(s): K29.60 - Other gastritis without bleeding Category: Medical (3) Irregular bowel habits: Code(s): R19.8 - Other specified symptoms and signs involving the digestive system and abdomen Category: Medical (4) 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 Size of soft tissue denisity vs LN decreased on most recent scan. Pt will be getting repeat scan next month. Mildly elevated dannielle noted - levels not up to the extent that can trigger abd pain but definitely in the Ddx. Plan: - CRP, IgG 4 subclasses - ionized dannielle, PTH - EGD and colo also to be set up for diffuse abd pain and gastritis - preferentially to be done AFTER the next scan Follow up after scopes Orders: Orders Liver Panel Today R59.1 - Generalized enlarged lymph nodes Immunoglobulin G Subclasses Today R59.1 - Generalized enlarged lymph nodes Calcium, Ionized Today R59.1 - Generalized enlarged lymph nodes Immunoglobulin G Today R59.1 - Generalized enlarged lymph nodes Parathyroid Hormone Intact Today E83.52 - Hypercalcemia Medications: New cholecalciferol (vitamin D3) 62.5 mcg PO DAILY 30 days 30 caps 2RF peg 3350-electrolytes 236-22.74-6.74 -5.86 gram (Golytely) as per split prep instructions, until fecal effluent is clear 240 mL PO Q10M 4,000 mL 0RF colonoscopy Coding Level of Care Code Est Pt Level 4 (68075) Diagnoses Gastroesophageal reflux disease with esophagitis K21.00 Erosive gastritis K29.60 Irregular bowel habits R19.8 Mesenteric panniculitis K65.4 Diffuse abdominal pain R10.84 Hypercalcemia E83.52 Lymphadenopathy R59.1
[2024-02-26 09:24] VITALS: BP 126/87; PULSE 72; BMI 25.0
== END 2024-02-26 10:03 | disposition home or self-care (01) ==
PROVIDERS: PCP Internal Medicine; Referring Provider Internal Medicine; Visit Provider Internal Medicine
DX: K21.00 Gastro-esophageal reflux disease with esophagitis, without bleeding (principal); K29.60 Other gastritis without bleeding; R19.8 Other specified symptoms and signs involving the digestive system and abdomen; K65.4 Sclerosing mesenteritis; R10.84 Generalized abdominal pain; E83.52 Hypercalcemia; R59.1 Generalized enlarged lymph nodes
CPT/HCPCS: 99214

== ENCOUNTER 2024-05-01 08:04 | Outpatient (AMB) | payer BC, SELFPAY ==
[2024-05-01 08:10] VITALS: BP 118/72; PULSE 79; O2SAT 98; BMI 25.6
--- NOTE | 2024-05-01 08:10 | A.OFFPC_ITS ---
Vital Signs 05/01/24 08:10 Height 5 ft 10 in Weight 178 lb 4 oz BMI 25.6 BP 118/72 Blood Pressure Location Lt brachial Position Sitting Pulse 79 Pulse Source Pulse Oximeter Pulse Oximetry (%) 98 Oxygen Delivery Method Room Air Intake Visit Reasons: PE Intake Note: pt is here for annual exam, colonoscopy booked for end of year this year. declined flu shot Retail [employer] Required: No Accompanied by: Self / Same As Patient Allergies No Known Allergies Allergy (Verified 05/01/24 08:33) Medication List - Last Reconciled 05/01/24 by Tania Pascual MD lansoprazole 30 mg PO DAILY Synthroid (levothyroxine) 150 mcg PO QWEEK NS Synthroid (levothyroxine) ONE TABLET Q.A.M. 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 He has another CT of abdomen pelvis scheduled by his GI and has an appointment for a screening colonoscopy and upper endoscopy later this year. Patient has stopped taking his fish oil supplements which he states was causing some GI irritation abdominal pain which resolved after stopping the medication. Complains of recurrent right scrotal pain and states that he has been feeling a lump in his right scrotal area which comes and goes. Denies any penile discharge or lesions. Has a nonhealing slightly raised erythematous lesion on the tip of his nose which has been present now for the last several months, and has been having rash on both cheeks which comes and goes. Complains od oily skin , mainly on face. Does not want to get flu vaccine. [facility] Medical History (Updated 05/01/24 @ 09:04 by Tania Pascual MD) Gastroesophageal reflux disease with esophagitis Erosive gastritis Irregular bowel habits Mesenteric panniculitis Diffuse abdominal pain Refused influenza vaccine Familial hypertriglyceridemia Acquired hypothyroidism Surgical History No pertinent past surgical history Family History Father No problems noted. Mother Graves' disease Substance use disorder Cervical cancer Brother No problems noted. Daughter No problems noted. Daughter No problems noted. Sister Substance use disorder Social History Household Members: Spouse and Children Housing: House Alcohol intake: former Year quit: 2021 e-Cigarette/Vaping Use: Never Used Current occupational status: employed Gender identity: Male Cognitive needs: No Hearing needs: No Vision needs: No Questionnaire PHQ-9 Over the last 2 weeks, how often have you been bothered by any of the following problems? 1. Little interest or pleasure in doing things: not at all 2. Feeling down, depressed, or hopeless: not at all 3. Trouble falling or staying asleep, or sleeping too much: not at all 4. Feeling tired or having little energy: not at all 5. Poor appetite or overeating: not at all 6. Feeling bad about yourself - or that you are a failure or have let yourself or your family down: not at all 7. Trouble concentrating on things, such as reading the newspaper or watching television: not at all 8. Moving or speaking so slowly that other people could have noticed. Or the opposite - being so fidgety or restless that you have been moving around a lot more than usual: not at all 9. Thoughts that you would be better off or of hurting yourself in some way: not at all Total score: 0 Depression Screening Interpretation: Negative Depression Screening Done: Yes 14558 - PHQ-9 Billing: Yes Source: Developed by Drs. Johan Noe, Rachel Owens, Dinesh Rahman and colleagues, with an educational gen from [employer]. Thrive Questionnaire Date Thrive assessed: 05/01/24 I am a: Patient What is your living situation today?: I have a steady place to live Within the past 12 months, did the food you bought not last and you didn't have the money to get more?: I choose not to answer this question Within the past 12 months, did you worry whether your food would run out before you got money to buy more?: I choose not to answer this question Do you have trouble paying for medicines?: I choose not to answer this question Do you have trouble getting transportation to medical appointments?: I choose not to answer this question Do you have trouble paying your heating and electricity bill?: I choose not to answer this question Do you have trouble taking care of your child, family member or friend?: I choose not to answer this question Do you have trouble with day-to-day activities such as bathing, preparing meals, shopping, managing finances, etc.?: I choose not to answer this question Are you interested in more education?: I choose not to answer this question Please select the resources that you would like help with: None Currently or been in a relationship where the following occur: I choose not to answer THRIVE Score: 0 AUDIT C Alcohol Use Questionnaire (AUDIT-C) 1. How often do you have a drink containing alcohol?: Never 3. How often do you have six or more drinks on one occasion?: Never Total Score: 0 Score Reviewed/Action Taken: Yes SCOTT-7 AMB Questionnaire SCOTT-7 Date SCOTT - 7 assessed: 05/01/24 Feeling nervous, anxious, or on edge: 0 = Not at all Not being able to stop or control worryin = Not at all Worrying too much about different things: 0 = Not at all Trouble relaxin = Not at all Being so restless that it is hard to sit still: 0 = Not at all Becoming easily annoyed or irritable: 0 = Not at all Feeling afraid as if something awful might happen: 0 = Not at all Total SCOTT-7 score (0-4 normal; 5-9 mild; 10-14 moderate; 15-21 severe): 0 Source: Developed by Drs. Johan Noe, Rachel Owens, Dinesh Rahman and colleagues, with an educational gen from [employer]. SCOTT-7 Assessment Billing SCOTT-7 Assessment Tool: SCOTT-7 Assessment 69637 Review of Systems Const Denies difficulty sleeping, Denies fatigue, Denies fever(s), Denies headache(s) and Denies weakness Eyes Denies change in vision ENT Denies dizziness, Denies headache(s), Denies hearing loss, Denies nasal congestion, Denies disequilibrium, Denies post nasal drip, Reports tinnitus (bilateral) and Denies sore throat Card Denies chest pain, Denies rapid heart rate, Denies lightheadedness, Denies palpitations and Denies dyspnea Resp Denies cough and Denies dyspnea GI Reports abdominal pain (Intermittent on right side of abdomen), Denies melena, Denies hematochezia and Reports heartburn (Improved on lansoprazole) Reports as per HPI Musc Denies arthralgias, Denies muscle weakness, Denies numbness and Denies tingling Skin/Breast Reports as per HPI Neuro Denies dizziness, Denies headache(s), Denies numbness, Denies tingling, Denies disequilibrium and Denies weakness Psych Reports no additional complaints Endo Denies fatigue and Denies palpitations David/Lymph Reports no additional complaints Aller/Immun Reports no additional complaints Physical exam (Primary Care) Vital Signs: Last Vital Signs Pulse 79 05/01/24 08:10 BP 118/72 05/01/24 08:10 Pulse Ox 98 05/01/24 08:10 Oxygen Delivery Method Room Air 05/01/24 08:10 BMI result Body Mass Index 25.6 Tobacco/Smoking Status: Tobacco use Status Tobacco use date assessed 05/01/24 05/01/24 08:13 e-Cigarette/Vaping Use Never Used 05/01/24 08:10 PHQ-9: PHQ-9 Score PHQ-9: Total score 0 05/01/24 08:13 Depression Screening Interpretation: Negative Thrive Assessment: Date of Thrive Assessment Date Thrive assessed 05/01/24 05/01/24 08:13 Currently or been in a relationship where the following occur: I choose not to answer Const General: healthy appearing, comfortable and no acute distress Nutritional Appearance: average body habitus Orientation/consciousness: patient oriented x3 HENMT Other: Mole erythematous lesion on tip of nose Head: Yes normocephalic Ears: hearing grossly normal bilaterally, external ears normal, TM's normal bilaterally and EAC's normal Face and sinus: Yes face symmetric and No erythema Mouth: Normal oral and palatal mucosa present and moist mucous membranes Eyes General: appearance normal, both eyes and all related structures Neck Other: Supple, with no lymphadenopathy palpated, thyroid gland nonpalpable and no ntender Resp Auscultation: clear to auscultation bilaterally Cardio Other: S1 and S2 present, regular rate and rhythm GI Inspection: Yes normal to inspection Palpation (GI): Soft to palpation, no guarding, not rigid and no masses General: Yes no CVA tenderness Male General Exam: Yes normal external exam, No hernia and No inguinal lymphadenopathy Penis: normal penis Scrotum: scrotum normal, not erythematous, testes descended bilaterally, no hydroceles, no inguinal hernias and no masses Back/Spine/Pelvis Back: no CVA tenderness and No back tenderness Skin Other: Erythematous lesion on tip of nose Neuro General: patient oriented x3, gait normal, tone normal, moves all extremities, Normal light touch and pain sensation, no focal motor deficits and CN's II-XI intact bilaterally Cognition (Neuro): normal cognition Gait exam (Neuro): Normal gait present Extrem General: Yes full ROM, Yes no joint enlargement, Yes no clubbing, cyanosis or edema, Yes no calf tenderness and Yes normal gait Psych Appearance: grossly normal and well kempt Mental Status: mental status grossly normal Speech and movement: Normal speech and movement present Coding Level of Care Code Est Pt Prev Care 40-64y(07482) Diagnoses Annual visit for general adult medical examination with abnormal findings Z00. Familial hypertriglyceridemia E78.1 Acquired hypothyroidism E03.9 Pain in scrotum without trauma of scrotum N50.82 History of vitamin D deficiency Z86.39 Non-healing skin lesion of nose L98.9 Refused influenza vaccine Z28.21 Mesenteric panniculitis K65.4 Erosive gastritis K29.60 Gastroesophageal reflux disease with esophagitis K21.00 Additional Codes SCOTT-7 Assessment Billing - SCOTT-7 Assessment Tool: SCOTT-7 Assessment 97133 ([id number]) Assessment & Plan Assessment & Plan (1) Annual visit for general adult medical examination with abnormal findings: Code(s): Z00.01 - Encounter for general adult medical examination with abnormal findings Plan: Will check appropriate labs. Continue regular dental visit every 6 months and regular eye exams, at least every 2 years. Take adequate calcium in diet and vitamin-D 3 at 2000 IU per cap once a day, in addition to weight-bearing exercises to help maintain good muscle tone and weight control. Instructed to do self-testicular exam check for any mass. Patient refused flu vaccine, reminded to get his COVID booster, up-to-date with Tdap. (2) Familial hypertriglyceridemia: Code(s): E78.1 - Pure hyperglyceridemia Category: Medical Plan: Fasting lipid panel ordered. Reinforced importance of following a low- cholesterol diet and getting regular exercise (3) Acquired hypothyroidism: Code(s): E03.9 - Hypothyroidism, unspecified Category: Medical Plan: Ordered TSH and free T4, continue with current dose of Synthroid (4) Pain in scrotum without trauma of scrotum: Code(s): N50.82 - Scrotal pain Plan: Ordered scrotal ultrasound bilateral (5) History of vitamin D deficiency: Code(s): Z86.39 - Personal history of other endocrine, nutritional and metabolic disease Plan: Will check vitamin-D level (6) Non-healing skin lesion of nose: Code(s): L98.9 - Disorder of the skin and subcutaneous tissue, unspecified Plan: Referred to [place] for further evaluation and management (7) Refused influenza vaccine: Code(s): Z28.21 - Immunization not carried out because of patient refusal Category: Medical Plan: Patient refused flu shot (8) Mesenteric panniculitis: Code(s): K65.4 - Sclerosing mesenteritis Category: Medical Plan: Has a repeat CT of abdomen pelvis ordered by GI, and has an appointment for a screening colonoscopy later this year (9) Erosive gastritis: Code(s): K29.60 - Other gastritis without bleeding Category: Medical Plan: Has appointment for an upper endoscopy later this year (10) Gastroesophageal reflux disease with esophagitis: Code(s): K21.00 - Gastro-esophageal reflux disease with esophagitis, without bleeding Category: Medical Plan: Has appointment for upper endoscopy later this year, continue on lansoprazole Orders: Orders US scrotum doppler Today N50.82 - Scrotal pain Vitamin D 25-OH Total Today Z86.39 - Personal history of other endocrine, nutritional and metabolic disease Thyroid Stimulating Hormone Today E03.9 - Hypothyroidism, unspecified, E78.1 - Pure hyperglyceridemia Free T4 (Free Thyroxine) Today E03.9 - Hypothyroidism, unspecified, E78.1 - Pure hyperglyceridemia Lipid Panel Today E03.9 - Hypothyroidism, unspecified, E78.1 - Pure hyperglyceridemia Referrals Dermatology Referral L98.9 - Disorder of the skin and subcutaneous tissue, unspecified
== END 2024-05-01 08:59 | disposition home or self-care (01) ==
PROVIDERS: PCP Internal Medicine; Visit Provider Internal Medicine
DX: Z00.00 Encounter for general adult medical examination without abnormal findings (principal); K65.4 Sclerosing mesenteritis; E78.1 Pure hyperglyceridemia; E03.9 Hypothyroidism, unspecified; N50.82 Scrotal pain; Z86.39 Personal history of other endocrine, nutritional and metabolic disease; L98.9 Disorder of the skin and subcutaneous tissue, unspecified; Z28.21 Immunization not carried out because of patient refusal; K29.60 Other gastritis without bleeding; K21.00 Gastro-esophageal reflux disease with esophagitis, without bleeding

== ENCOUNTER → 2024-05-01 08:04 | Outpatient (BNVA) | payer BC, SELFPAY | PROVIDERS: PCP Internal Medicine; Visit Provider Internal Medicine | DX: Z00.01 Encounter for general adult medical examination with abnormal findings (principal); E78.1 Pure hyperglyceridemia; E03.9 Hypothyroidism, unspecified; N50.82 Scrotal pain; L98.9 Disorder of the skin and subcutaneous tissue, unspecified; K65.4 Sclerosing mesenteritis; K29.60 Other gastritis without bleeding; K21.00 Gastro-esophageal reflux disease with esophagitis, without bleeding; Z79.899 Other long term (current) drug therapy; Z86.39 Personal history of other endocrine, nutritional and metabolic disease; Z28.21 Immunization not carried out because of patient refusal | CPT/HCPCS: 96127 ==

== ENCOUNTER 2024-05-01 09:00 | Outpatient (REF) | payer BC, SELFPAY ==
[2024-05-01 11:04] LABS: Parathyroid Hormone Intact 35.5 pg/mL (8.7-77.1)
[2024-05-01 11:12] LABS: Cholesterol 221 mg/dL (<200); HDL Cholesterol 36 mg/dL (>40); LDL Cholesterol Calculated 119 mg/dL (<100); Triglycerides 331 mg/dL (<150)
[2024-05-01 11:19] LABS: Free T4 (Free Thyroxine) 1.51 ng/dL (0.71-1.85); Thyroid Stimulating Hormone < 0.01 uIU/mL (0.32-4.0); Vitamin D 25-OH Total 60.4 ng/mL (>30)
[2024-05-07 15:34] LABS: Immunoglobulin G Subclass 1 335 mg/dL (382-929); Immunoglobulin G Subclass 2 521 mg/dL (241-700); Immunoglobulin G Subclass 3 27 mg/dL (22-178); Immunoglobulin G Subclass 4 52.8 mg/dL (4-86); Immunoglobulin G Total 960 mg/dL (600-1640)
== END 2024-05-01 09:01 | disposition home or self-care (01) ==
LOC: HO.HMGCLDS 09:00
PROVIDERS: Internal Medicine; PCP Internal Medicine; Visit Provider Internal Medicine
DX: E78.1 Pure hyperglyceridemia (principal); E03.9 Hypothyroidism, unspecified; Z86.39 Personal history of other endocrine, nutritional and metabolic disease; E83.52 Hypercalcemia; R59.1 Generalized enlarged lymph nodes
CPT/HCPCS: 36415; 80061; 82306; 82784; 83970; 84439; 84443

== ENCOUNTER 2024-05-09 11:17 | Outpatient (REF) | payer BC, SELFPAY ==
--- NOTE | ~2024-05-09 | CT_ITS ---
EXAMINATION: CT ABDOMEN AND PELVIS WITH CONTRAST CLINICAL INFORMATION: Lymphadenopathy COMPARISON: CT dated December 27, 2023 TECHNIQUE: Multidetector volumetric images were obtained from the superior aspect of the liver through the pubic symphysis following administration 85 mL of Omnipaque 350 intravenous contrast. Sagittal and coronal reformatted images were obtained on the technologist's workstation. Oral contrast: No This CT examination was performed using dose optimization techniques as appropriate, variously including the following: *Automated exposure control *Adjustment of mA and/or kV according to patient size (this includes techniques or standardized protocols for targeted exams where dose is matched to indication/reason for exam; i.e. extremities or head) *Use of iterative reconstruction technique DLP: 420 mGy-cm FINDINGS: Mesenteric edema pattern with multiple prominent mesenteric lymph nodes. No ascites. No pneumoperitoneum. LIVER, GALLBLADDER, AND BILIARY TREE: Liver measures 15 cm. No focal mass. Portal vein and hepatic veins are patent. Gallbladder is contracted. No pericholecystic fluid collection or gallbladder wall thickening. No intrahepatic or extrahepatic biliary ductal dilatation. PANCREAS: No focal pancreatic mass or peripancreatic fluid collection. No main pancreatic ductal dilatation. SPLEEN: Measures 11 cm. No focal mass. ADRENAL GLANDS: No nodular lesions. KIDNEYS AND URETERS: Normal renal mass. No hydronephrosis. BLADDER: Fluid-filled nearly collapsed. GASTROINTESTINAL TRACT: Abundant stool within the large intestine. No intestinal obstruction pattern. No pneumatosis intestinalis. Appendix is normal. ABDOMINAL WALL: Focal diastases abdominal rectus muscles in the periumbilical region. LYMPH NODES: Prominent mesenteric lymph nodes. VASCULAR: No aneurysm or dissection, abdominal aorta. PELVIC VISCERA: Normal-sized prostate gland. OSSEOUS STRUCTURES: No acute fracture or listhesis. No lytic or blastic lesions. CT/CT abdomen pelvis w IV con IMPRESSION: Mesenteric panniculitis. There is a lengthy differential diagnostic considerations. Overall stable. Electronically signed by: Kasi Chinchilla MD 05/09/2024 01:42 PM EDT
[2024-05-09] MEDS: iohexoL 350 MG/ML 100 ML INFUS..BTL 85 ML IV (12:40)
== END 2024-05-09 11:18 | disposition home or self-care (01) ==
LOC: HO.XRAY 11:17
PROVIDERS: PCP Internal Medicine; Visit Provider Internal Medicine
DX: R59.1 Generalized enlarged lymph nodes (principal)
CPT/HCPCS: 74177; Q9967

== ENCOUNTER → 2024-05-09 11:28 | Outpatient (BNV) | payer BC, SELFPAY | PROVIDERS: PCP Internal Medicine; Visit Provider Radiology Diagnostic Radiology | DX: R41.0 Disorientation, unspecified (principal) | CPT/HCPCS: 74177 ==

== ENCOUNTER 2024-05-16 10:06 | Outpatient (REF) | payer BC, SELFPAY ==
--- NOTE | ~2024-05-16 | US_ITS ---
EXAMINATION: US SCROTUM CLINICAL INFORMATION: Right scrotal pain. COMPARISON: None available. TECHNIQUE: A sonogram of the scrotum was performed assessing nance-scale appearance and color Doppler flow. Spectral Doppler analysis of the arterial and venous flow were performed in the testes bilaterally. FINDINGS: RIGHT: Right testicle measures 4.7 x 2.2 x 3.4 cm, volume 18.5 mL. No focal testicular parenchymal lesions are visualized. Spectral Doppler analysis of the arterial and venous flow is normal in the right testis. Small right hydrocele. Right epididymal head cyst measures 3 x 2 x 3 mm. Right varicocele is suspected. Right epididymal Doppler flow is normal. LEFT: Left testicle measures 4.4 x 2.2 x 3.0 cm, volume 15.1 mL. No focal testicular parenchymal lesions are visualized. Spectral Doppler analysis of the arterial and venous flow is normal in the left testis. Minimal left hydrocele. Left epididymal head cyst measures 4 x 5 x 5 mm. Left varicocele is suspected. Left epididymal Doppler flow is normal. US/US scrotum IMPRESSION: Bilateral epididymal head cysts. Small bilateral hydroceles. Possible bilateral varicoceles. Electronically signed by: Jelani Valadez MD 05/16/2024 01:01 PM EDT
== END 2024-05-16 10:07 | disposition home or self-care (01) ==
LOC: HO.HMGCX 10:06
PROVIDERS: PCP Internal Medicine; Visit Provider Internal Medicine
DX: N50.82 Scrotal pain (principal)
CPT/HCPCS: 76870

== ENCOUNTER 2024-06-27 07:27 | Day surgery (SDC) | payer BC, SELFPAY ==
[2024-06-25 12:51] VITALS: BMI 25.0
--- NOTE | 2024-06-26 08:50 | P.CONAN_ITS ---
Documented by User: Kerry Minaya NP 06/26/24 08:51 HPI - Anesthesia Eval Consult details Narrative: 38yo M for Upper Endoscopy and Colonoscopy PMF Active Problems Active Problems: All Active Problems Bilateral hydrocele (Acute) Cyst of epididymis determined by ultrasound (Acute) Low immunoglobulin level (Acute) Hypercalcemia (Acute) Lymphadenopathy (Acute) Gastroesophageal reflux disease with esophagitis (Acute) Erosive gastritis (Acute) Mesenteric panniculitis (Chronic) Refused influenza vaccine (Acute) Familial hypertriglyceridemia (Acute) Acquired hypothyroidism (Acute) Past Medical History Medical History Bilateral hydrocele Cyst of epididymis determined by ultrasound Gastroesophageal reflux disease with esophagitis Erosive gastritis Irregular bowel habits Mesenteric panniculitis Diffuse abdominal pain Refused influenza vaccine Familial hypertriglyceridemia Acquired hypothyroidism Family History Family History Father No problems noted. Mother Graves' disease Substance use disorder Cervical cancer Brother No problems noted. Daughter No problems noted. Daughter No problems noted. Sister Substance use disorder Surgical History Surgical History No pertinent past surgical history Social History Social History Household Members: Spouse and Children Housing: House Alcohol intake: former Year quit: 2021 Patient Tobacco Use Status: Never used Tobacco e-Cigarette/Vaping Use: Never Used Use of substances other than those prescribed or required for medical reasons: No Are you DNR?: No Advance Directives: No Advance Directives Information Provided: Yes Recently lost weight without trying: No Current occupational status: employed Gender identity: Male Cognitive needs: No Hearing needs: No Vision needs: No Meds Allergies Allergy/AdvReac Type Severity Reaction Status Date / Time No Known Allergies Allergy Verified 06/27/24 08:09 Exam Height,Weight and Vital Signs: Height 5 ft 10 in Weight 78.925 kg Assessment and Plan Assessment Anesthesia Assessment: Chart Reviewed Documented by User: Cj Yang MD 06/27/24 09:31 [facility] Past Medical History Medical History Bilateral hydrocele Cyst of epididymis determined by ultrasound Gastroesophageal reflux disease with esophagitis Erosive gastritis Irregular bowel habits Mesenteric panniculitis Diffuse abdominal pain Refused influenza vaccine Familial hypertriglyceridemia Acquired hypothyroidism Family History Family History Father No problems noted. Mother Graves' disease Substance use disorder Cervical cancer Brother No problems noted. Daughter No problems noted. Daughter No problems noted. Sister Substance use disorder Family history of problems with anesthesia: No Surgical History Surgical History No pertinent past surgical history History of Problems with Anesthesia: No Social History Social History Household Members: Spouse and Children Housing: House Alcohol intake: former Year quit: 2021 Patient Tobacco Use Status: Never used Tobacco e-Cigarette/Vaping Use: Never Used Use of substances other than those prescribed or required for medical reasons: No Are you DNR?: No Advance Directives: No Advance Directives Information Provided: Yes Recently lost weight without trying: No Current occupational status: employed Gender identity: Male Cognitive needs: No Hearing needs: No Vision needs: No Meds Allergies Allergy/AdvReac Type Severity Reaction Status Date / Time No Known Allergies Allergy Verified 06/27/24 08:09 Exam Airway Mallampati Class: II TM Dist: <=3cm Neck ROM: Full Loose/Missing/Broken Teeth: No Heart: ok Lungs: ok Assessment and Plan Assessment Anesthesia Assessment: Anesthesia Plan Discussed Final Anesthetic Review Family History of Problems with Anesthesia: No History of Problems with Anesthesia: No NPO: Yes ASA Class: II Final Preanesthetic Review: No Changes in Pt Med Stat, Meds/Allgs Chart Reviewed, Consent Obtained/Reviewed and Anes Risks/Benef Reviewed Patient Risk: Intermediate Procedure Risk: Intermediate Anesthetic Plan Anesthetic Plan: Agree w/ Assess. and Plan and TIVA Disposition: Standard PACU
--- NOTE | 2024-06-27 08:02 | MHC.SHP ---
Pre-Procedural Eval Section A - 24 Hr Update-Section A only Date of Service: 06/27/24 Section B - Complete if H&P > 30 days Chief Complaint: Abd pain Details of Present Illness: Gastroesophageal reflux disease with esophagitis Erosive gastritis Irregular bowel habits Mesenteric panniculitis Diffuse abdominal pain Refused influenza vaccine Familial hypertriglyceridemia Acquired hypothyroidism Surgical History No pertinent past surgical history Allergies: Allergies Allergy/AdvReac Type Severity Reaction Status Date / Time No Known Allergies Allergy Verified 05/01/24 08:33 Review of Systems Review of Systems Comment: Ten point ROS negative Exam Exam Comment: Gen appear: No acute distress HEENT: no icterus Chest: No overt resp distress Abd: soft, nontender, nondistended Psych: Stable affect, answering questions appropriately Neuro: A/Ox3 noted to move all extremities spontaneously Ext: no peripheral edema Plan Diagnosis/Plan: Unchanged I have reviewed the history and physical and performed a pertinent physical examination on my patient. No changes have occurred unless specified. Time Spent With Patient Time: Total time managing care of this patient today ____ minutes.
[2024-06-27 08:10] VITALS: BMI 24.8
[2024-06-27 08:17] VITALS: BP 119/82; PULSE 88; RESP 15; TEMP 36.7; O2SAT 99
[2024-06-27] MEDS: Lactated Ringers 1,000 ML 100 ML IVCONT (08:33)
--- NOTE | 2024-06-27 09:24 | P.OPN-COLO_ITS ---
Colonoscopy Operative Note Operative Note Date of Service: 06/27/24 Narrative: Procedure: Upper endoscopy and colonoscopy Indication: Abd pain Endoscopist: Deanna Benedict MD Anesthesia Provider: Dr Cj Yang Anesthesia type: MAC Instrument: [id number]-H190 and PCF-[id number] EGD Procedure:?? The procedure, indications, preparation and potential complications were reviewed with the patient, who indicated understanding and gave written informed consent to proceed. The endoscope was introduced through the mouth, and advanced to the 2nd part of the duodenum. The mucosa was carefully examined on slow withdrawal of the endoscope. The patient tolerated the procedure well. There were no immediate complications.? EGD Findings:? * Esophagus:? Normal esophageal mucosa was noted. The Z-line was at 40 cm and irregular up to 39 cm. Cold forceps biopsies were taken from GEJ to rule out gandhi's esophagus. * Stomach:? Erythema and erosions in the antrum. Retroflexion was performed in the cardia. Random cold forceps biopsies were taken from the stomach. * Duodenum:? Erythema and edema in the whole duodenum to the extent examined. Cold forceps biopsies were taken from the duodenal bulb and 2nd portion of the duodenum to rule out celiac sprue. Colonoscopy Procedure:? The patient was then turned for the colonoscopy. A digital rectal exam was performed which was normal.? A distal attachment cap was affixed to the tip of the scope and the colonoscope was then inserted through the anus and advanced through the colon and advanced to the cecum at 75 cm and terminal ileum.? Appendiceal orifice and ileocecal valve were identified. Mucosa was carefully examined under high definition white light as the instrument was slowly withdrawn in a retrograde panoramic fashion. Retroflexion was performed in rectum. The procedure was not difficult. The quality of the prep was BBPS: 2+3+3 = adequate Withdrawal time 9 minutes Limitations: No limitations Findings: Mucosa: Normal colon and terminal ileum mucosa. Cold forceps biopsies were taken from the right and left side of the colon to rule out microscopic colitis. Protruding lesions: * Small internal hemorrhoids without stigmata of recent bleeding. Excavated lesions: * Scattered few diverticula noted in the left side of the colon. Impression: 1. Irregular Z line r/o BE (biopsy) 2. Gastritis (biopsy) 3. Duodenitis (biopsy) 4. Normal colon and terminal ileum mucosa (biopsy) 5. Internal hemorrhoids Recommendations:?? * Follow-up path results * Avoid NSAIDs * H Pylori treatment if biopsies + * Repeat colonoscopy for CRC screening in 10 years.
[2024-06-27 10:02] VITALS: BP 92/61; PULSE 71; RESP 18; TEMP 36.3; O2SAT 94
[2024-06-27 10:17] VITALS: BP 108/79; PULSE 67; RESP 16; TEMP 36.4; O2SAT 98
== END 2024-06-27 11:01 | disposition home or self-care (01) ==
PROVIDERS: PCP Internal Medicine; Visit Provider Internal Medicine
PROC: (CPT 45380; principal; 2024-06-27 09:20)
DX: R19.4 Change in bowel habit (principal); K57.30 Diverticulosis of large intestine without perforation or abscess without bleeding; K64.8 Other hemorrhoids; K29.50 Unspecified chronic gastritis without bleeding; K29.80 Duodenitis without bleeding; K21.00 Gastro-esophageal reflux disease with esophagitis, without bleeding; K22.89 Other specified disease of esophagus; E78.1 Pure hyperglyceridemia; E03.9 Hypothyroidism, unspecified
CPT/HCPCS: 45380; 43239; 88305; 88313; 88342; J2003; J2704

== ENCOUNTER → 2024-06-27 07:27 | Outpatient (BNV) | payer BC, SELFPAY | PROVIDERS: PCP Internal Medicine; Visit Provider Internal Medicine | DX: K29.70 Gastritis, unspecified, without bleeding (principal); K29.80 Duodenitis without bleeding; K22.89 Other specified disease of esophagus; K57.30 Diverticulosis of large intestine without perforation or abscess without bleeding; K64.8 Other hemorrhoids | CPT/HCPCS: 43239; 45380 ==

== ENCOUNTER 2024-09-16 07:37 | Outpatient (REF) | payer BC, SELFPAY ==
[2024-09-16 11:07] LABS: Anion Gap 12 (12-20); Blood Urea Nitrogen 16 mg/dL (9-16); Calcium 9.3 mg/dL (8.4-10.2); Carbon Dioxide 28 mmol/L (22-29); Chloride 105 mmol/L (96-108); Cholesterol 190 mg/dL (<200); Estimated Glomerular Filt Rate > 60; Glucose Fasting 90 mg/dL (60-99); HDL Cholesterol 31 mg/dL (>40); LDL Cholesterol Calculated 120 mg/dL (<100); Potassium 3.7 mmol/L (3.3-5.1); Sodium 141 mmol/L (135-145); Triglycerides 197 mg/dL (<150)
[2024-09-16 11:22] LABS: Free T4 (Free Thyroxine) 1.35 ng/dL (0.71-1.85); Thyroid Stimulating Hormone 0.02 uIU/mL (0.32-4.0)
[2024-09-17 09:04] LABS: Thyroid Peroxidase Antibodies <1 IU/mL (<9)
== END 2024-09-16 07:38 | disposition home or self-care (01) ==
LOC: HO.HMGCLDS 07:37
PROVIDERS: PCP Internal Medicine; Visit Provider Internal Medicine
DX: E03.9 Hypothyroidism, unspecified (principal); E78.1 Pure hyperglyceridemia; G43.909 Migraine, unspecified, not intractable, without status migrainosus
CPT/HCPCS: 36415; 80048; 80061; 84439; 84443; 86376

== ENCOUNTER 2024-09-17 09:02 | Outpatient (AMB) | payer BC, SELFPAY ==
--- NOTE | 2024-09-17 09:21 | A.OFFPC_ITS ---
Vital Signs 09/17/24 09:25 Height 5 ft 10 in Weight 179 lb BMI 25.7 BP 112/80 Blood Pressure Location Lt brachial Position Sitting Respiration 16 Pulse 77 Pulse Source Pulse Oximeter Temp 98.0 F Temp Source Oral Pulse Oximetry (%) 98 Intake Visit Reasons: f/u ER complex migraines Intake Note: Pt is here today for his ER f/u migraines Allergies No Known Allergies Allergy (Verified 09/17/24 09:41) Medication List - Last Reconciled 09/17/24 by Tania Pascual MD lansoprazole 30 mg PO DAILY omega-3 fatty acids 2,000 mg PO DAILY Synthroid (levothyroxine) ONE TABLET Q.A.M. MONDAY TO MONDAY 175 mcg PO; NS Synthroid (levothyroxine) 150 mcg PO QWEEK NS Tobacco use date assessed: 09/17/24 Dental Screening Dental Screen Date: 09/17/24 Did you have a dental visit in the last 12 months?: No Did you have a dental problem in the last 6 months where you did not have access to dental care?: No Was dental information given to patient?: Patient has dentist HPI f/u ER complex migraines HPI Details 38-year-old male with history of christina l hypertriglyceridemia, acquired hypothyroidism, gastritis, here today for follow-up after recent ER [facility] visit on 09/04/24 where he presented with sudden onset visual disturbance in his right eye, described as accommodation blurred vision and loss of lateral visual abernathy, followed by a temporary inability to speak, which lasted approximately 30 minutes. On presentation to ER patient had no ongoing symptoms, denied any headache no fever no chills, no neck pain ,no loss of motor strength or sensation. He had an extensive Telestroke evaluation at the ER and patient's labs, EKG CT scan of brain, CT angiogram results were all unremarkable. Provisional diagnosis of possible complex migraine given, and he was referred to [facility] neurology for further evaluation management, as per ER note they will arrange an outpatient MRI and follow-up in her office. At present patient is feeling well, currently asymptomatic. [facility] Medical History Migraine Bilateral hydrocele Cyst of epididymis determined by ultrasound Gastroesophageal reflux disease with esophagitis Erosive gastritis Irregular bowel habits Mesenteric panniculitis Diffuse abdominal pain Refused influenza vaccine Familial hypertriglyceridemia Acquired hypothyroidism Surgical History No pertinent past surgical history Family History Father No problems noted. Mother Graves' disease Substance use disorder Cervical cancer Brother No problems noted. Daughter No problems noted. Daughter No problems noted. Sister Substance use disorder Social History Household Members: Spouse and Children Housing: House Alcohol intake: former Year quit: 2021 Patient Tobacco Use Status: Never used Tobacco e-Cigarette/Vaping Use: Never Used Current occupational status: employed Gender identity: Male Cognitive needs: No Hearing needs: No Vision needs: No Questionnaire PHQ-9 Over the last 2 weeks, how often have you been bothered by any of the following problems? 1. Little interest or pleasure in doing things: not at all 2. Feeling down, depressed, or hopeless: not at all 3. Trouble falling or staying asleep, or sleeping too much: not at all 4. Feeling tired or having little energy: not at all 5. Poor appetite or overeating: not at all 6. Feeling bad about yourself - or that you are a failure or have let yourself or your family down: not at all 7. Trouble concentrating on things, such as reading the newspaper or watching television: not at all 8. Moving or speaking so slowly that other people could have noticed. Or the opposite - being so fidgety or restless that you have been moving around a lot more than usual: not at all 9. Thoughts that you would be better off or of hurting yourself in some way: not at all Total score: 0 Depression Screening Interpretation: Negative Depression Screening Done: Yes 46235 - PHQ-9 Billing: Yes Source: Developed by Drs. Johan Noe, Rachel Owens, Dinesh Rahman and colleagues, with an educational gen from [employer]. Thrive Questionnaire Date Thrive assessed: 09/17/24 I am a: Patient What is your living situation today?: I have a steady place to live Within the past 12 months, did the food you bought not last and you didn't have the money to get more?: I choose not to answer this question Within the past 12 months, did you worry whether your food would run out before you got money to buy more?: I choose not to answer this question Do you have trouble paying for medicines?: I choose not to answer this question Do you have trouble getting transportation to medical appointments?: I choose not to answer this question Do you have trouble paying your heating and electricity bill?: I choose not to answer this question Do you have trouble taking care of your child, family member or friend?: I choose not to answer this question Do you have trouble with day-to-day activities such as bathing, preparing meals, shopping, managing finances, etc.?: I choose not to answer this question Are you interested in more education?: I choose not to answer this question Please select the resources that you would like help with: None Currently or been in a relationship where the following occur: I choose not to answer THRIVE Score: 0 AUDIT C Alcohol Use Questionnaire (AUDIT-C) 1. How often do you have a drink containing alcohol?: Never Total Score: 0 SCOTT-7 AMB Questionnaire SCOTT-7 Date SCOTT - 7 assessed: 05/01/24 Source: Developed by Drs. Johan Noe, Rachel Owens, Dinesh Rahman and colleagues, with an educational gen from [employer]. Review of Systems Const Denies difficulty sleeping, Denies fatigue, Denies fever(s), Denies headache(s) and Denies weakness Eyes Denies change in vision ENT Denies dizziness, Denies headache(s), Denies disequilibrium, Denies post nasal drip and Reports tinnitus (bilateral) Card Denies chest pain, Denies rapid heart rate, Denies lightheadedness, Denies palpitations and Denies dyspnea Resp Denies cough and Denies dyspnea GI Denies abdominal pain, Denies melena and Reports heartburn (Improved on lansoprazole) Reports as per HPI Musc Denies arthralgias, Denies muscle weakness, Denies numbness and Denies tingling Neuro Denies dizziness, Denies headache(s), Denies numbness, Denies tingling, Denies disequilibrium and Denies weakness Psych Reports no additional complaints Endo Denies fatigue and Denies palpitations David/Lymph Reports no additional complaints Aller/Immun Reports no additional complaints Physical exam (Primary Care) Vital Signs: Last Vital Signs Temp 98.0 F 09/17/24 09:25 Pulse 77 09/17/24 09:25 Resp 16 09/17/24 09:25 BP 112/80 09/17/24 09:25 Pulse Ox 98 09/17/24 09:25 BMI result Body Mass Index 25.7 Tobacco/Smoking Status: Tobacco use Status Tobacco use date assessed 09/17/24 09/17/24 09:29 Patient Tobacco Use Status Never used Tobacco 09/17/24 09:22 e-Cigarette/Vaping Use Never Used 09/17/24 09:22 Depression Screening Interpretation: Negative Thrive Assessment: Date of Thrive Assessment Date Thrive assessed 09/17/24 09/17/24 09:22 Currently or been in a relationship where the following occur: I choose not to answer Const General: healthy appearing and no acute distress Orientation/consciousness: patient oriented x3 HENMT Head: Yes normocephalic Ears: hearing grossly normal bilaterally, external ears normal, TM's normal bilaterally and EAC's normal Face and sinus: Yes face symmetric Mouth: Normal oral and palatal mucosa present and moist mucous membranes Eyes General: appearance normal, both eyes and all related structures Neck Other: Supple, with no lymphadenopathy palpated, thyroid gland nonpalpable and nontender Resp Auscultation: clear to auscultation bilaterally Cardio Other: S1 and S2 present, regular rate and rhythm GI Inspection: Yes normal to inspection Palpation (GI): Soft to palpation, no guarding and no masses General: Yes no CVA tenderness Back/Spine/Pelvis Back: no CVA tenderness and No back tenderness Neuro General: patient oriented x3, gait normal, moves all extremities, Normal light touch and pain sensation, no focal motor deficits and CN's II-XI intact bilaterally Cognition (Neuro): normal cognition Gait exam (Neuro): Normal gait present Extrem General: Yes full ROM, Yes no joint enlargement, Yes no clubbing, cyanosis or edema, Yes no calf tenderness and Yes normal gait Psych Appearance: grossly normal and well kempt Mental Status: mental status grossly normal Speech and movement: Normal speech and movement present Results Reviewed Results Reviewed: Name: John Smith Age/Sex: 38/M : 1985 Unit#: [id number] Attend Dr: Felicity Beck MD Re06/21/24 Status: REG [facility] Disch: SPEC : [id number] KELI: 06/21/24 STATUS: COMP REQ : [id number] RECD: 06/21/[address]: Felicity eBck MD COMP: 06/21/24 ENTERED: 06/21/[address] [facility] [address]: Tania Pascual MD ORDERED: CBC Auto Diff Test Result Flag Reference WBC 7.6 4.8-10.8 X10*3/uL RBC 5.17 4.60-5.80 X10*6/uL HGB 16.5 14.0-18.0 g/dl HCT 46.8 42.0-52.0 % MCV 90.5 80.0-98.0 fL MCH 31.9 27.0-33.0 pg MCHC 35.3 31.0-36.0 g/dl RDW 12.3 11.0-16.0 % PLT 207 160-400 X10*3/uL MPV 9.9 9.4-12.4 fL Neut Pct Auto 70.1 45-73 % ImGran Pct Auto 0.3 0.0-0.4 % Lymp Pct Auto 23.7 20-40 % [place] Pct Auto 5.1 2-11 % Eos Pct Auto 0.4 0-4 % Baso Pct Auto 0.4 0-2 % NRBC Pct Auto 0.0 0.0-0.2 /100WBC ANC Neut Abs # 5.4 2.0-8.3 x10*3/uL ImGran Abs Auto 0.02 0.00-0.03 X10* 3/uL Lymph Abs Auto 1.8 1.2-4.9 X10*3/uL [place] Abs Auto 0.4 0.1-1.2 X10*3/uL Eos Abs Auto 0.0 0.0-0.4 X10*3/uL Baso Abs Auto 0.0 0.0-0.2 X10*3/uL NRBC Abs Auto 0.000 0.0-0.012 X10*3/uL Name: LuisJohn Age/Sex: 38/M : 1985 Unit#: [id number] Attend Dr: Tania Pascual MD Re09/16/24 Status: DEP REF Location: [facility] Disch: SPEC : [id number] KELI: 09/16/24 STATUS: COMP REQ : [id number] RECD: 09/16/24-[address]: Tania Pascual MD COMP: 09/16/24 ENTERED: 09/16/[address]: ORDERED: Met Prof Fast, Lipid Panel, Free T4, TSH Test Result Flag Reference Sodium 141 135-145 mmol/L Potassium 3.7 3.3-5.1 mmol/L CL 105 96-108 mmol/L CO2 28 22-29 mmol/L Gap 12 12-20 BUN 16 9-16 mg/dL Creat 0.84 0.5-1.4 mg/dL eGFR > 60 Chronic Kidney Disease: Estimated GFR < 60 mL/min/1.73m2 Severe Kidney Disease: Estimated GFR < 15 mL/min/1.73m2 FBS 90 60-99 mg/dL CA 9.3 # 8.4-10.2 mg/dL Triglyceride 197 H <150 mg/dL Desirable Triglyceride: less than 150 mg/dL Borderline High Triglyceride 150-199 mg/dL High Triglyceride: 200-499 mg/dL Very High Triglyceride: greater than or equal to 5OO mg/dL Cholesterol 190 <200 mg/dL Desirable Cholesterol: less than 200 mg/dL Borderline High Cholesterol: 200-239 mg/dL High Cholesterol: greater than 239 mg/dL LDL Calculated 120 H <100 mg/dL Desirable LDL: less than 100 mg/dL Near Optimal/Above Optimal LDL: 110-129 mg/dL Borderline High LDL: 130-159 mg/dL High LDL: 160-189 mg/dL Very High LDL: greater than or equal to 190 mg/dL HDL 31 L >40 mg/dL Desirable HDL: greater than 40 mg/dL Note: This HDL assay may give artificially low results in patients with liver disease. Free T4 1.35 0.71-1.85 ng/dL TSH 3rd Gen. 0.02 L 0.32-4.0 uIU/mL TSH 3rd Generation ([facility]) Coding Level of Care Code Est Pt Level 4 (93374) Complex EM visit Add On G2211 Diagnoses Other migraine without status migrainosus, not intractable G43.809 Migraine type: other Status migrainosus presence: without status migrainosus Intractability: not intractable Acquired hypothyroidism E03.9 Familial hypertriglyceridemia E78.1 Additional Codes PHQ-9 - 66512 - PHQ-9 Billing: Yes ([id number]) Assessment & Plan Assessment & Plan (1) Migraine: Code(s): G43.909 - Migraine, unspecified, not intractable, without status migrainosus Category: Medical Qualifiers: Migraine type: other Status migrainosus presence: without status migrainosus Intractability: not intractable Qualified Code(s): G43.809 - Other migraine, not intractable, without status migrainosus Plan: Has an appointment with the headaches center in [place] (2) Acquired hypothyroidism: Code(s): E03.9 - Hypothyroidism, unspecified Category: Medical Plan: Currently on Synthroid, continue same dose (3) Familial hypertriglyceridemia: Comment: no meds currently, being watched Code(s): E78.1 - Pure hyperglyceridemia Category: Medical Plan: Continue Wallace 3 fatty acid supplements Orders: Orders Lipid Panel 01/14/25 E03.9 - Hypothyroidism, unspecified, E78.1 - Pure hyperglyceridemia, Z82.49 - Family history of ischemic heart disease and other diseases of the circulatory system Aspartate Amino Transferase 01/14/25 E03.9 - Hypothyroidism, unspecified, E78.1 - Pure hyperglyceridemia, Z82.49 - Family history of ischemic heart disease and other diseases of the circulatory system Thyroid Stimulating Hormone 01/14/25 E03.9 - Hypothyroidism, unspecified, E78.1 - Pure hyperglyceridemia, Z82.49 - Family history of ischemic heart disease and other diseases of the circulatory system Free T4 (Free Thyroxine) 01/14/25 E03.9 - Hypothyroidism, unspecified, E78.1 - Pure hyperglyceridemia, Z82.49 - Family history of ischemic heart disease and other diseases of the circulatory system Lipoprotein A 01/14/25 Z82.49 - Family history of ischemic heart disease and other diseases of the circulatory system Alanine Aminotransferase 01/14/25 E03.9 - Hypothyroidism, unspecified, E78.1 - Pure hyperglyceridemia, Z82.49 - Family history of ischemic heart disease and other diseases of the circulatory system
[2024-09-17 09:25] VITALS: BP 112/80; PULSE 77; RESP 16; TEMP 36.7; O2SAT 98; BMI 25.7
== END 2024-09-17 10:03 | disposition home or self-care (01) ==
PROVIDERS: PCP Internal Medicine; Visit Provider Internal Medicine
DX: G43.809 Other migraine, not intractable, without status migrainosus (principal); E03.9 Hypothyroidism, unspecified; E78.1 Pure hyperglyceridemia

== ENCOUNTER → 2024-09-17 09:02 | Outpatient (BNVA) | payer BC, SELFPAY | PROVIDERS: PCP Internal Medicine; Visit Provider Internal Medicine | DX: G43.809 Other migraine, not intractable, without status migrainosus (principal); E78.1 Pure hyperglyceridemia; E03.9 Hypothyroidism, unspecified | CPT/HCPCS: 96127 ==

== ENCOUNTER 2024-10-23 10:37 | Outpatient (AMB) | payer BC, SELFPAY ==
--- NOTE | 2024-10-23 10:38 | MHC.OFFVIS ---
Intake Visit Reasons: follow up Intake Note: [facility] CC: He is not having any concerns Allergies No Known Allergies Allergy (Verified 10/23/24 10:38) HPI Comments Details: 37 y.o M with PMH of hypothyroidism who is here for abd pain. Pt reports chronic lower abd pain for years which he just associates with his BMs. Last month had epigastric discomfort assoc with diarrhea. Went to [facility] where he had a CT scan that showed a 2.5 cm soft tissue focus read as mesenteric panniculitis. He then had another episode of severe pain that lasted 4 hours on Monday without any N,V, change in bowel habits. The pain abated on its own. Had upper GI series 10/2023 that shows GERD and gastritis. 02/26/24: Here for follow up. CT Scan from December reviewed, labs reviewed. Persistent borderline leukopenia. Mildly elevated serum calcium. Scan with interval DECREASE in the soft tissue density. Pt seen by Onc - ? reactive LN. Plan for repeat imaging in 3 months. Pt himself reports resolution in the abd pain that actually sent him to [facility] since start lansoprazole. Now has intermittent R sided abd discomfort daniel after eating. Bowel habits regular. No fevers, chills, night sweats or unintentionl weight loss. 06/27/24: EGD/colo 1. Irregular Z line r/o BE (biopsy) 2. Gastritis (biopsy) 3. Duodenitis (biopsy) 4. Normal colon and terminal ileum mucosa (biopsy) 5. Internal hemorrhoids Path: A. Duodenum, biopsy: Duodenal mucosa within normal limits. B. Stomach, random, biopsy: Antral-type and oxyntic mucosa with mild chronic inactive inflammation; no Helicobacter organisms seen. C. GE junction, biopsy: - Cardiac-type mucosa with moderate chronic inactive inflammation; no intestinal metaplasia seen. - Active esophagitis (maximum eosinophil count 11 per high powered field). D. Colon, right, biopsy: Colonic mucosa within normal limits. E. Colon, left, biopsy: Colonic mucosa within normal limits 10/23/24: Booked for televisit follow up. Had a recent visit to the ER a couple of months ago for stroke rule out, found to have complex migraines. From GI standpoint, reports minimal epigastric and abd discomfort now. Continues on lansoprazole 30 which hes been on for almost a year now. Results of EGD/colo reviewed. No PUD or HP. No polyps. In terms of mesenteric panniculitis, and enlarged lymph nodes, follow up CT scan 04/2024 was unchanged from before. Follows with hematology. [facility] Medical History Migraine Bilateral hydrocele Cyst of epididymis determined by ultrasound Gastroesophageal reflux disease with esophagitis Erosive gastritis Irregular bowel habits Mesenteric panniculitis Diffuse abdominal pain Refused influenza vaccine Familial hypertriglyceridemia Acquired hypothyroidism Surgical History (Updated 10/23/24 @ 10:38 by NARA Potter) History of esophagogastroduodenoscopy (EGD) Hx of colonoscopy No pertinent past surgical history Family History Father No problems noted. Mother Graves' disease Substance use disorder Cervical cancer Brother No problems noted. Daughter No problems noted. Daughter No problems noted. Sister Substance use disorder Social History Household Members: Spouse and Children Housing: House Alcohol intake: former Year quit: 2021 Patient Tobacco Use Status: Never used Tobacco e-Cigarette/Vaping Use: Never Used Current occupational status: employed Gender identity: Male Cognitive needs: No Hearing needs: No Vision needs: No Review of Systems Const All systems reviewed & are unremarkable except as noted in HPI and below Physical Exam Vital Signs: Video visit: No acute distress No icterus noted No facial asymmetry Speaking in full sentences Telehealth Telehealth Telehealth Platform: [employer] Location of provider rendering services: practice address Location of patient: address on file Patient Identification confirmed using: Name, : Yes Telehealth method: video Patient verbally consented to treatment: Yes Patient verbally consented to billing insurance company: Yes Patient informed of any privacy concerns related to visit: Yes Minutes spent on Phone/Video with Pt.: 20 Assessment & Plan Assessment & Plan (1) 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 Mesenteric panniculitis Follows with hematology. Will order a follow up scan now i.e 6 months from prev scan. If any actionable change in LN size, will need to follow up with hematology sooner than scheduled. 2. GERD Reviewed that has documented reflux + esophagitis hx and therefore will likely need to stay on PPI lifelong. However, can decrease to lowest effective dose. Plan: - Decrease lansoprazole to 15 mg once daily - Pt aware to expect midl to moderate rebound heartburn in first few weeks after decrease in dose - To call office if sx persist despite 4 weeks of lanso 15 3. CRC screening No polyps on colo 06/2024. Repeat colo for asymptomaitc colorectal ca screening in 10 years i.e 2033. Follow up as needed Orders: Orders CT abdomen pelvis w IV con 10/23/24 K65.4 - Sclerosing mesenteritis Medications: Changed From lansoprazole Take at least 1 hour before eating 30 mg PO DAILY 90 caps 1RF To lansoprazole 15 mg PO DAILY 90 days 90 tabs 2RF Coding Level of Care Code Tele Est Pt Level 4 (15627) Diagnoses Mesenteric panniculitis K65.4 Erosive gastritis K29.60 Gastroesophageal reflux disease with esophagitis K21.00
== END 2024-10-23 13:31 | disposition home or self-care (01) ==
LOC: HO.HGI 10:37
PROVIDERS: PCP Internal Medicine; Visit Provider Internal Medicine
DX: K65.4 Sclerosing mesenteritis (principal); K29.60 Other gastritis without bleeding; K21.00 Gastro-esophageal reflux disease with esophagitis, without bleeding
CPT/HCPCS: 99214

== ENCOUNTER 2024-12-18 09:34 | Outpatient (REF) | payer BC, SELFPAY ==
--- NOTE | ~2024-12-18 | CT_ITS ---
CLINICAL HISTORY: K65.4 - Sclerosing mesenteritis CT abdomen and pelvis with IV contrast. COMPARISON: None FINDINGS: Partially visualized lung bases are unremarkable. No focal hepatic lesion. Normal gallbladder. Normal spleen. Normal pancreas. Normal adrenal glands. Symmetric renal enhancement. No hydronephrosis. Normal appendix. No bowel obstruction. There is increased attenuation of the mesentery along the mesenteric root with thin pseudo capsule and cluster of mildly enlarged mesenteric lymph nodes within this region. No internal calcification or fibrotic changes [id number] colonic stool burden. Normal abdominal aorta. Normal appearance of the urinary bladder. No inguinal lymphadenopathy. No acute fracture or suspicious bone lesion. IMPRESSION: 1. 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 No evidence of fibrosis. This document has been electronically signed by: Antonio Wolf MD on 12/18/2024 14:04:00
[2024-12-18] MEDS: iohexoL 350 MG/ML 100 ML INFUS..BTL IV (10:13)
== END 2024-12-18 09:35 | disposition home or self-care (01) ==
LOC: HO.CT 09:34
PROVIDERS: PCP Internal Medicine; Visit Provider Internal Medicine
DX: K65.4 Sclerosing mesenteritis (principal)
CPT/HCPCS: 74177; Q9967

== ENCOUNTER → 2024-12-18 09:36 | Outpatient (BNV) | payer BC, SELFPAY | PROVIDERS: PCP Internal Medicine; Visit Provider Radiology Diagnostic Radiology | DX: K65.4 Sclerosing mesenteritis (principal) | CPT/HCPCS: 74177 ==

== ENCOUNTER 2025-04-15 12:27 | Outpatient (AMB) | payer BC, SELFPAY ==
--- NOTE | 2025-04-15 12:37 | A.OFFVIS_ITS ---
Intake Visit Reasons: Migrane Allergies No Known Allergies Allergy (Verified 10/23/24 10:38) HPI Comments Details: The patient is a 39-year-old male presenting with complex migraine and management of recurrent migraine episodes. He has a long-standing history of migraines, described as having distinct seasons, which have intensified and become more frequent over time. The patient consciously avoids known dietary triggers, such as MSG, nitrates, and alcohol, which have been linked to previous exacerbations. Recently, he experienced a new, severe type of migraine, termed a complex migraine, which included visual disturbances and temporary language impa irment. These symptoms led to emergency intervention. Despite a trial of Ubrogepant and Rizatriptan, the patient associates these medications with an increased occurrence of headaches and prefers management without pharmacological intervention. The migraines often present as a throbbing sensation, primarily located near the eyes, and may be accompanied by nausea and vomiting. The familial history of migraines is noted, with the patient's mother also experiencing similar symptoms. [facility] Medical History (Updated 04/15/25 @ 12:59 by Laura Graham MD) Migraine Bilateral hydrocele Cyst of epididymis determined by ultrasound Gastroesophageal reflux disease with esophagitis Erosive gastritis Irregular bowel habits Mesenteric panniculitis Diffuse abdominal pain Refused influenza vaccine Familial hypertriglyceridemia Acquired hypothyroidism Surgical History (Updated 10/23/24 @ 10:38 by NARA Potter) History of esophagogastroduodenoscopy (EGD) Hx of colonoscopy No pertinent past surgical history Family History Father No problems noted. Mother Graves' disease Substance use disorder Cervical cancer Brother No problems noted. Daughter No problems noted. Daughter No problems noted. Sister Substance use disorder Social History Household Members: Spouse and Children Housing: House Alcohol intake: former Year quit: 2021 Patient Tobacco Use Status: Never used Tobacco e-Cigarette/Vaping Use: Never Used Current occupational status: employed Gender identity: Male Cognitive needs: No Hearing needs: No Vision needs: No Review of Systems Const Details: - Neurological: Reports migraines with and without aura, visual disturbances, language impairment - Head and Neck: Reports headaches, pain behind eyes, occasional nausea, and vomiting - Family History: Reports familial history of migraines in mother Physical Exam Neuro Other: Mental Status: Alert and oriented to person, place, and time. Normal attention. Normal spontaneous speech, fluency, and comprehension. No obvious issues with mood and memory. Affect is appropriate. Cranial Nerves: CN II: Visual abernathy full to confrontation, visual acuity intact. CN III, IV, : Pupils equal, round, reactive to light and accommodation. Extraocular movements are normal. CN V: Facial sensation is normal. CN VII: Facial movements symmetrical. CN VIII: Hearing intact to bedside conversation is normal. CN IX, X: Palate elevates symmetrically. CN XI: Shoulder shrug and head turn symmetrical. CN XII: Tongue midline without atrophy or fasciculations. Motor: Bulk and tone normal in all extremities. No significant muscle weakness in arms and legs. No drift. Reflexes: Deep tendon reflexes 2+ and symmetric. Plantar response down-going bilaterally. Coordination: Fbdafh-ir-tyaw and mtib-ur-kakg testing normal. No dysmetria. Gait and Station: No obvious gait abnormality. No ataxia or instability. Sensory: Intact to light touch, pinprick, and vibration. Romberg is negative. Extrapyramidal: Full facial expressions and blinking. No rigidity. Movements are appropriate with no tremor or abnormality. Speech: Normal; no dysarthria or tremor. Assessment & Plan Assessment & Plan (1) Migraine with aura, not intractable, without status migrainosus: Code(s): G43.109 - Migraine with aura, not intractable, without status migrainosus Category: Medical (2) Migraine with aura: Code(s): G43.109 - Migraine with aura, not intractable, without status migrainosus Category: Medical Qualifiers: Status migrainosus presence: without status migrainosus Intractability: not intractable Qualified Code(s): G43.109 - Migraine with aura, not intractable, without status migrainosus Plan Impression: a: Migraine w/o aura b: Migraine w aura Rec: a: Education b: In case of mild headaches, try sumatriptan 50mg one a day as needed c: In case of aura, take Ubrelvy as needed d: Bring CD of brain at next visit During our discussion, I explained the pathophysiology of migraine to the patient, emphasizing its genetic basis and typical progression over a lifetime. We reviewed the distinction between migraine with and without aura, and the planned management for each. Options for abortive and preventive treatments were covered, focusing on Ubrelvy and sumatriptan, with consideration to the patient?s previous encounters with medications and their side effects. Risks and benefits of these medications, including potential side effects such as sedation, were clearly communicated. I advised on combination therapy alternatives when single therapy is ineffective. Our session concluded with a reassurance that MRI was not deemed necessary following the clear CT scan, and an explanation that the temporary neurological symptoms were characteristic of migraines, not stroke. Follow-up with the nurse practitioner was encouraged to monitor progress and discuss any needs for adjustment in treatment strategy. Medications: New sumatriptan succinate 50 mg orally one a day as needed PRN; do not exceed 4 doses per 24 hrs 10 tabs 5RF migraine headache 30 days Coding Level of Care Code New Pt Level 4 (22296) Diagnoses Migraine with aura, not intractable, without status migrainosus G43.109 Migraine with aura and without status migrainosus, not intractable G43.109 Status migrainosus presence: without status migrainosus Intractability: not intractable
--- OUTSIDE RECORDS SUMMARY | 2025-04-15 13:37 | XMS_ITS | Clinical Summary ---
Author Organization [facility] Address [address] [place] [id number] Phone Care Team Providers Care Food Safety Coordinator Name Role Phone Tania Pascual MD Primary Care Provider Allergies No known active allergies Medications No known medications Encounters Date Type Department Care Team Description 02/04/2025 Telephone [facility] Neurology [address] [place], [place] [id number] Yasmine Cramer MA from Last 3 Months Social History Tobacco Use Types Packs/Day Years Used Date Smoking Tobacco: Never Smokeless Tobacco: Never Tobacco Cessation:Counseling Given: Not Answered Alcohol Use Standard Drinks/Week Comments Not Currently 0 (1 standard drink = 0.6 oz pur e alcohol) Education Answer Date Recorded Are you interested in more education? Not on abdias e 10/09/2023 Are you concerned about learning? Not on file 10/09/2023 No 10/09/2023 No 10/09/2023 Digital Access Answer Date Recorded No 10/09/2023 No 10/09/2023 Reliable internet access at home? Not on file 10/09/2023 Device with a working camera? Not on file Intimate Partner Violence Answer Date R ecorded Are you denied basic needs s uch as food, clothing, or medical care? No 10/09/2023 In the past 12 months have y ou been in a relationship with a person who hurts, threatens, or tries to control you? No 10/09/2023 Are you denied basic needs s uch as food, clothing, or medical care? No 10/09/2023 In the past 12 months have y ou been in a relationship with a person who hurts, threatens, or tries to control you? No 10/09/2023 Sex and Gender Information Value Date Recorded Sex Assigned at Male 10/09/2023 12:02 PM EDT Legal Sex Male 11:33 AM EDT Gender Identity Male 10/09/2023 12:02 PM EDT Sexual Orientation Not on file Last Filed Vital Signs Vital Sign Reading Time Taken Comments Blood Pressure 123/76 10/09/2023 6:36 PM EDT Pulse 81 10/09/2023 6:36 PM EDT Temperature 36.6 C (97.9 F) 10/09/2023 6:36 PM EDT Respiratory Rate 18 10/09/2023 6:36 PM EDT Oxygen Saturation 98% 10/09/2023 6:36 PM EDT Inhaled Oxygen Concentration - - Weight 76.2 kg (168 lb) 10/09/2023 2:03 PM EDT Height 177.8 cm (5' 10 ) 10/09/2023 2:03 PM EDT Body Mass Index 24.11 10/09/2023 2:03 PM EDT Plan of Treatment Health Maintenance Due Date Last Done Comments Adult Td,Tdap Booster 1983 LIPID PANEL 1983 DEPRESSION SCREENING 1995 HEPATITIS C SCREENING 11/06/2001 HIV ONE-TIME SCREENING (18-6 5 YEARS) 11/06/2001 INFLUENZA VACCINE (#1) 2025 COVID-19 VACCINE (2023-2 5 season) 2025 SMOKING STATUS SCREENING (On ce After 26 Yrs) Completed 10/09/2023 HEPATITIS A VACCINES Aged Out No long er eligible based on patient's age to complete this topic HIB VACCINES Aged Out No longer eligi ble based on patient's age to complete this topic MENINGOCOCCAL VACCINES (ACWY) Aged Out No longer eligible based on patient's age to complete this topic MENINGOCOCCAL VACCINES (B) Aged Out N o longer eligible based on patient's age to complete this topic PNEUMOCOCCAL VACCINES (0-49 years) Aged Out No longer eligible based on patient's age to complete this topic Medical Devices Not on [place] [address] [place] [address] [place] [address] Care Teams Food Safety Coordinator Relationship Specialty Start Date End Date Tania Pascual MD [address] [place] [id number] PCP - General Internal Medicine 10/09/23 Additional Source Comments The information contained in this document represents components of the legal health record. It is not the complete legal health record.[facility]
--- OUTSIDE RECORDS SUMMARY | 2025-04-15 13:37 | XMS_ITS | Encounter Summary ---
Author Organization [facility] Address [address] [place] [id number] Phone Care Team Providers Care Paving Plant Operator Name Role Phone Tania Pascual MD Primary Care Provider Encounter Details Date Type Department Care Team (Late st Contact Info) Description 10/09/2023 Procedure Pass [facility], Ct Scan - [address] [id number] Social History Tobacco Use Types Packs/Day Years Used Date Smoking Tobacco: Never Smokeless Tobacco: Never Alcohol Use Standard Drinks/Week Comments Not Currently [...] PM EDT Sexual Orientation Not on file documented as of this encounter Functional Status * Calculated C-SSRS Risk Score (Lifetime/Recent) Answer Date of Assessment Author No Risk Indicated 10/09/2023 11:59 AM EDT Maru Shaikh RN * Oliver Suicide Severity Rating Scale (Screener/Recent Self-Report) Question Answer Date of Assessment Author 1. Wish to be (Past 1 Month) No 10/09/2023 11:59 AM EDT Maru Shaikh RN 2. Non-Specific Active Suicidal Thoughts (Past 1 Month) No 10/09/2023 11:59 AM EDT Maru Shaikh RN 6. Suicidal Behavior (Lifetime) No 10/09/2023 11:59 AM EDT Maru Shaikh RN documented as of this encounter Plan of Treatment Not on file documented as of this encounter Visit Diagnoses Not on filedocumented in this encounter Care Teams Paving Plant Operator Relationship Specialty Start Date End Date Tania Pascual MD [facility] [place] [address] PCP - General Internal Medicine 10/09/23 documented as of this encounter Additional Source Comments The information contained in this document represents components of the legal health record. It is not the complete legal health record.[facility]
== END 2025-04-15 13:05 | disposition home or self-care (01) ==
LOC: HO.HSM 12:28
PROVIDERS: PCP Internal Medicine; Visit Provider Psychiatry & Neurology Neurology
DX: G43.109 Migraine with aura, not intractable, without status migrainosus (principal)
CPT/HCPCS: 99204

== ENCOUNTER 2025-06-03 08:46 | Outpatient (AMB) | payer BC, SELFPAY ==
--- NOTE | 2025-06-03 09:02 | A.OFFPC_ITS ---
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 MONDAY TO MONDAY 175 mcg PO; NS Synthroid (levothyroxine) 150 mcg PO QWEEK NS ubrogepant (Ubrelvy) mg PO ONCE PRN Tobacco use date assessed: 06/03/25 Dental Screening Dental Screen Date: 06/03/25 Did you have a dental visit in the last 12 months?: Yes Did you have a dental problem in the last 6 months where you did not have access to dental care?: No Was dental information given to patient?: Patient has dentist HPI Annual PE HPI Details 39-year-old male here today for his phys ical exam. He has history of familial hypertriglyceridemia, , admits to being off his diet for the last several months, patient states that he went to [place] this summer and got addicted to chocolates. He has also discovered [employer] chocolates and has been eating it almost daily. 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 Has still not had his fasting labs done, advised to adhere to recommended diet, get regular exercise and delay getting his fasting lipids to July 2025 instead Compliant with taking his Synthroid for treatment of his hypothyroidism He has migraine with aura currently controlled on Ubrelvy, takes sumatriptan as needed, followed by Dr. Graham He has chronic GERD with esophagitis, followed by Dr. Benedict, currently on lansoprazole 15 mg once a day. He goes to [facility] for his routine eye exam, wears corrective lenses for distance. He declined the offer to get flu vaccine on this visit, reminded to get an updated tetanus booster. Does not want to get a COVID booster [facility] Medical History (Updated 06/03/25 @ 10:13 by Tania Pascual MD) Bilateral hydrocele Cyst of epididymis determined by ultrasound Gastroesophageal reflux disease with esophagitis Erosive gastritis Irregular bowel habits Mesenteric panniculitis Diffuse abdominal pain Refused influenza vaccine Familial hypertriglyceridemia Acquired hypothyroidism Surgical History History of esophagogastroduodenoscopy (EGD) Hx of colonoscopy No pertinent past surgical history Family History Father No problems noted. Mother Graves' disease Substance use disorder Cervical cancer Brother No problems noted. Daughter No problems noted. Daughter No problems noted. Sister Substance use disorder Social History Household Members: Spouse and Children Housing: House Alcohol intake: former Year quit: 2021 Patient Tobacco Use Status: Never used Tobacco e-Cigarette/Vaping Use: Never Used Current occupational status: employed Gender identity: Male Cognitive needs: No Hearing needs: No Vision needs: No Questionnaire PHQ-9 Over the last 2 weeks, how often have you been bothered by any of the following problems? 1. Little interest or pleasure in doing things: not at all 2. Feeling down, depressed, or hopeless: not at all 3. Trouble falling or staying asleep, or sleeping too much: not at all 4. Feeling tired or having little energy: not at all 5. Poor appetite or overeating: not at all 6. Feeling bad about yourself - or that you are a failure or have let yourself or your family down: not at all 7. Trouble concentrating on things, such as reading the newspaper or watching television: not at all 8. Moving or speaking so slowly that other people could have noticed. Or the opposite - being so fidgety or restless that you have been moving around a lot more than usual: not at all 9. Thoughts that you would be better off or of hurting yourself in some way: not at all Total score: 0 Depression Screening Interpretation: Negative Depression Screening Done: Yes Source: Developed by Drs. Johan Noe, Rachel Owens, Dinesh Rahman and colleagues, with an educational gen from [employer]. Thrive Questionnaire Date Thrive assessed: 09/17/24 I am a: Patient What is your living situation today?: I have a steady place to live Within the past 12 months, did the food you bought not last and you didn't have the money to get more?: I choose not to answer this question Within the past 12 months, did you worry whether your food would run out before you got money to buy more?: I choose not to answer this question Do you have trouble paying for medicines?: I choose not to answer this question Do you have trouble getting transportation to medical appointments?: I choose not to answer this question Do you have trouble paying your heating and electricity bill?: I choose not to answer this question Do you have trouble taking care of your child, family member or friend?: I choose not to answer this question Do you have trouble with day-to-day activities such as bathing, preparing meals, shopping, managing finances, etc.?: I choose not to answer this question Are you currently unemployed and looking for a job?: I choose not to answer this question Are you interested in more education?: I choose not to answer this question Please select the resources that you would like help with: None Currently or been in a relationship where the following occur: I choose not to answer THRIVE Score: 0 AUDIT C Alcohol Use Questionnaire (AUDIT-C) 1. How often do you have a drink containing alcohol?: Never Total Score: 0 SCOTT-7 AMB Questionnaire SCOTT-7 Date SCOTT - 7 assessed: 06/03/25 Feeling nervous, anxious, or on edge: 0 = Not at all Not being able to stop or control worryin = Not at all Worrying too much about different things: 0 = Not at all Trouble relaxin = Not at all Being so restless that it is hard to sit still: 0 = Not at all Becoming easily annoyed or irritable: 0 = Not at all Feeling afraid as if something awful might happen: 0 = Not at all Total SCOTT-7 score (0-4 normal; 5-9 mild; 10-14 moderate; 15-21 severe): 0 Source: Developed by Drs. Johan Noe, Rachel Owens, Dinesh Rahman and colleagues, with an educational gen from [employer]. SCOTT-7 Assessment Billing SCOTT-7 Assessment Tool: SCOTT-7 Assessment 77865 Review of Systems Const Denies difficulty sleeping, Denies fatigue, Denies fever(s), Denies headache(s) and Denies weakness Eyes Details: sees [facility] Denies change in vision and Reports requires corrective lenses ENT Denies dizziness, Denies headache(s), Denies disequilibrium, Denies post nasal drip and Reports tinnitus (bilateral) Card Denies chest pain, Denies rapid heart rate, Denies lightheadedness, Denies palpitations and Denies dyspnea Resp Denies cough and Denies dyspnea GI Denies abdominal pain, Denies melena and Reports heartburn (Improved on lansoprazole) Reports as per HPI Musc Denies arthralgias, Denies muscle weakness, Denies numbness and Denies tingling Skin/Breast Denies new lesions and Denies rash Neuro Denies dizziness, Denies headache(s), Denies numbness, Denies tingling, Denies disequilibrium and Denies weakness Psych Reports no additional complaints Endo Denies fatigue and Denies palpitations David/Lymph Reports no additional complaints Aller/Immun Reports no additional complaints Physical exam (Primary Care) Vital Signs: Last Vital Signs Temp 98.1 F 06/03/25 09:16 Pulse 75 06/03/25 09:16 Resp 16 06/03/25 09:16 BP 104/70 06/03/25 09:16 Pulse Ox 97 06/03/25 09:16 Oxygen Delivery Method Room Air 06/03/25 09:16 BMI result Body Mass Index 25.4 Tobacco/Smoking Status: Tobacco use Status Tobacco use date assessed 06/03/25 06/03/25 09:04 Patient Tobacco Use Status Never used Tobacco 06/03/25 09:04 e-Cigarette/Vaping Use Never Used 06/03/25 09:04 PHQ-9: PHQ-9 Score PHQ-9: Total score 0 06/03/25 09:47 Depression Screening Interpretation: Negative Thrive Assessment: Date of Thrive Assessment Date Thrive assessed 09/17/24 06/03/25 09:04 Currently or been in a relationship where the following occur: I choose not to answer Advance Care Planning discussion: Completed/Scanned Date of discussion: 06/03/25 Who was present: Patient Forms completed: Health Care Proxy Time spent: 16-45 minutes Actual minutes spent: 2 Const General: healthy appearing and no acute distress Orientation/consciousness: patient oriented x3 HENMT Head: Yes normocephalic Ears: hearing grossly normal bilaterally, external ears normal, TM's normal bilaterally and EAC's normal Face and sinus: Yes face symmetric Mouth: Normal oral and palatal mucosa present and moist mucous membranes Eyes General: appearance normal, both eyes and all related structures Neck Other: Supple, with no lymphadenopathy palpated, thyroid gland nonpalpable and nontender Chest Chest palpation & inspection: normal inspection of the chest Resp Auscultation: clear to auscultation bilaterally Cardio Other: S1 and S2 present, regular rate and rhythm GI Inspection: Yes normal to inspection Palpation (GI): Soft to palpation, no guarding and no masses General: Yes no CVA tenderness Male General Exam: Yes normal external exam Back/Spine/Pelvis Back: no CVA tenderness and No back tenderness Skin General skin exam: no rashes or lesions noted Neuro General: patient oriented x3, gait normal, moves all extremities, Normal light touch and pain sensation, no focal motor deficits and CN's II-XI intact bilaterally Cognition (Neuro): normal cognition Gait exam (Neuro): Normal gait present Extrem General: Yes full ROM, Yes no joint enlargement, Yes no clubbing, cyanosis or edema, Yes no calf tenderness and Yes normal gait Psych Appearance: grossly normal and well kempt Mental Status: mental status grossly normal Speech and movement: Normal speech and movement present Coding Level of Care Code Est Pt Prev Care 40-64y(05734) Diagnoses Annual visit for general adult medical examination with abnormal findings Z00.01 Familial hypertriglyceridemia E78.1 Acquired hypothyroidism E03.9 Gastroesophageal reflux disease with esophagitis without hemorrhage K21.00 Esophagitis bleeding: without hemorrhage Migraine with aura, not intractable, without status migrainosus G43.109 Advance directive discussed with patient Z71.89 Additional Codes SCOTT-7 Assessment Billing - SCOTT-7 Assessment Tool: SCOTT-7 Assessment 21146 ([id number]) Vital Signs *Quality* - Advance Care Planning discussion: Completed/Scanned ([id number]) Vital Signs *Quality* - Time spent: 16-45 minutes ([id number]) Assessment & Plan Assessment & Plan (1) Annual visit for general adult medical examination with abnormal findings: Code(s): Z00.01 - Encounter for general adult medical examination with abnormal findings Plan: Will check appropriate labs. Recommended dental visit every 6 months and regular eye exams, at least every 2 years. Take adequate calcium in diet and vitamin-D 3 at 2000 IU per cap once a day, in addition to weight-bearing exercises to help maintain good muscle tone and weight control. Instructed to do self testicular exam check for any mass. Declined flu vaccine and COVID booster, reminded to get his tetanus diphtheria booster, (2) Familial hypertriglyceridemia: Comment: no meds currently, being watched Code(s): E78.1 - Pure hyperglyceridemia Category: Medical Plan: Advised to adhere to recommended diet, stop eating a lot of junk food and chocolates. Recheck another fasting lipid panel liver enzymes in July 2025 (3) Acquired hypothyroidism: Code(s): E03.9 - Hypothyroidism, unspecified Category: Medical Plan: Continued on current dose of Synthroid, repeat another TSH and free T4 in 2025 (4) Gastroesophageal reflux disease with esophagitis: Code(s): K21.00 - Gastro-esophageal reflux disease with esophagitis, without bleeding Category: Medical Qualifiers: Esophagitis bleeding: without hemorrhage Qualified Code(s): K21.00 - Gastro-esophageal reflux disease with esophagitis, without bleeding Plan: Continued on lansoprazole, followed by Dr Benedict (5) Migraine with aura, not intractable, without status migrainosus: Code(s): G43.109 - Migraine with aura, not intractable, without status migrainosus Category: Medical Plan: Controlled on Ubrelvy, takes sumatriptan as needed, followed by Neurology (6) Advance directive discussed with patient: Code(s): Z71.89 - Other specified counseling Plan: Initiated the conversation about Advanced Directives. Advanced Directives help patients prepare for current and future decisions about their medical treatment and place of care. Discussed with patient that it is a process where a patients current condition and prognosis are reviewed, their wishes for information regarding their illness are elicited, and likely medical dilemmas are presented and options discussed. Healthcare proxy form completed today. The form can be amended as needed, reviewed yearly and make changes as needed Orders: Orders Hemoglobin and Hematocrit 07/19/25 K21.00 - Gastro-esophageal reflux disease with esophagitis, without bleeding, Z86.39 - Personal history of other endocrine, nutritional and metabolic disease Vitamin D 25-OH Total 07/19/25 K21.00 - Gastro-esophageal reflux disease with esophagitis, without bleeding, Z86.39 - Personal history of other endocrine, nutritional and metabolic disease
[2025-06-03 09:16] VITALS: BP 104/70; PULSE 75; RESP 16; TEMP 36.7; O2SAT 97; BMI 25.4
== END 2025-06-03 10:07 | disposition home or self-care (01) ==
LOC: HO.HMCC 08:47
PROVIDERS: PCP Internal Medicine; Visit Provider Internal Medicine
DX: Z00.01 Encounter for general adult medical examination with abnormal findings (principal); E78.1 Pure hyperglyceridemia; E03.9 Hypothyroidism, unspecified; K21.00 Gastro-esophageal reflux disease with esophagitis, without bleeding; G43.109 Migraine with aura, not intractable, without status migrainosus; Z71.89 Other specified counseling; Z00.00 Encounter for general adult medical examination without abnormal findings

== ENCOUNTER → 2025-06-03 08:46 | Outpatient (BNVA) | payer BC, SELFPAY | PROVIDERS: PCP Internal Medicine; Visit Provider Internal Medicine | DX: Z00.01 Encounter for general adult medical examination with abnormal findings (principal); E78.1 Pure hyperglyceridemia; E03.9 Hypothyroidism, unspecified; K21.00 Gastro-esophageal reflux disease with esophagitis, without bleeding; G43.109 Migraine with aura, not intractable, without status migrainosus; Z71.89 Other specified counseling | CPT/HCPCS: 96127 ==